=== PATIENT | female | born 1960 | race Caucasian/White ===

== ENCOUNTER 2020-06-29 01:20 | Emergency (ER) | payer BC, OTHER ==
[2020-06-29] MEDS ORDERED: NA CHLORIDE 0.9% 250 ML ONE (02:10)
[2020-06-29] MEDS ORDERED: PANTOPRAZOLE 40 MG INJ ONE (02:10)
[2020-06-29] MEDS ORDERED: OCTREOTIDE ACETATE 100 MCG/ML ONE (02:11)
[2020-06-29] MEDS ORDERED: NA CHLORIDE 0.9% 500 ML ONE (02:11)
[2020-06-29] MEDS ORDERED: NA CHLORIDE 0.9% 1,000 ML ONE (02:29)
[2020-06-29 02:42] LABS: Absolute Lymphocytes (CBC) 1.6 K/uL (0.7-4.9); Basophils % 0.8 % (0-1.3); Hematocrit 41.5 % (36.0-45.0); Lymphocytes % 11.8 % (15.3-44.8); MPV 8.6 fL (7.6-11.3); RBC Red Blood Cell Count 4.06 M/uL (3.86-4.86)
[2020-06-29 02:46] LABS: Protime INR 1.03
[2020-06-29] MEDS ORDERED: ONDANSETRON 4 MG/2 ML VIAL ONE (02:50)
[2020-06-29 03:01] LABS: ALT/SGPT 41 U/L (12-78); AST/SGOT 40 U/L (15-37); Albumin 4.1 g/dL (3.4-5.0); Alkaline Phosphatase 126 U/L (45-117); BUN Blood Urea Nitrogen 20 mg/dL (7-18); Bicarbonate 24 mmol/L (21-32); Bilirubin Direct 0.3 mg/dL (0-0.2); Bilirubin Total 1.3 mg/dL (0.2-1.0); Glucose Level 185 mg/dL (74-106); Magnesium 2.1 mg/dL (1.8-2.4); NT PRO-BNP 132 pg/mL (<125); Potassium 3.3 mmol/L (3.5-5.1); Protein, Total 8.8 g/dL (6.4-8.2); Sodium Level 139 mmol/L (136-145); Troponin (Emerg Dept Use Only) < 0.02 ng/mL (0.0-0.045)
--- NOTE | 2020-06-29 04:23 | ER ---
Nurse's Notes [facility] Name: Charlie Fisher Age: 60 yrs Sex: Female : 1960 Arrival Date: 06/29/2020 Time: 01:21 Bed 8 Private MD: Diagnosis: Encounter for screening for lower gastrointestinal disorder;Hematemesis;Alcohol dependence Presentation: 06/29 01:43 Chief complaint: Patient states: Reports vomiting black/brown emesis x4 yesterday with lp1 upper abdominal pain; denies diarrhea, constipation; reports nausea, inability to tolerate food or fluids for the last 24hrs. Coronavirus screen: Client denies travel out of the [place] in the last 14 days. At this time, the client does not indicate any symptoms associated with coronavirus-19. Ebola Screen: No symptoms or risks identified at this time. Initial Sepsis Screen: Does the patient meet any 2 criteria? HR > 90 bpm. Does the patient have a suspected source of infection? No. Patient's initial sepsis screen is negative. Risk Assessment: Do you want to hurt yourself or someone else? Patient reports no desire to harm self or others. Onset of symptoms was June 28, 2020. 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 - Social history:: Smoking status: Patient reports the use of cigarette tobacco products, denies chronic smoking, but will smoke occasionally, Patient uses alcohol, on a daily basis. claims drinking about a 6 pack/day. Screenin:46 Abuse screen: Denies threats or abuse. Denies injuries from another. Nutritional lp1 screening: No deficits noted. Tuberculosis screening: No symptoms or risk factors identified. Fall Risk None identified. Assessment: 01:46 General: Appears uncomfortable, Behavior is appropriate for age. Pain: Complains of lp1 pain in epigastric area and left upper quadrant Quality of pain is described as sharp, Pain began gradually. Neuro: Level of Consciousness is awake, alert, obeys commands, Oriented to person, place, time, situation. Cardiovascular: Patient's skin is warm and dry. Respiratory: Respiratory effort is even, unlabored. GI: Abdomen is non-distended, Bowel sounds present X 4 quads. Reports nausea, black stool, Patient currently denies constipation. : No signs and/or symptoms were reported regarding the genitourinary system. EENT: No signs and/or symptoms were reported regarding the EENT system. Derm: Skin is intact, Skin is dry, Skin is normal. Musculoskeletal: No deficits noted. 02:50 Reassessment: Provider notified of patient complaint of continued nausea, emesis bag lp1 noted to have about 150ml of black/brown liquid; verbal order for Zofran 4mg IV now. 04:00 Reassessment: Patient appears in no apparent distress at this time. Patient and/or lp1 family updated on plan of care and expected duration. Pain level reassessed. Patient is alert, oriented x 3, equal unlabored respirations, skin warm/dry/pink. Patient denies pain at this time. 05:19 Reassessment: Report called to HAIM Jovel for patient transfer to [facility] [place] 9 lp1 Rm 946; patient for transfer pending COVID result. 06:44 Reassessment: Patient is alert, oriented x 3, equal unlabored respirations, skin lp1 warm/dry/pink. EMS at bedside for transfer; Patient denies pain at this time. GI: Patient currently denies nausea. 06:50 Reassessment: Patient ambulated to bathroom independently prior to transfer. lp1 06:50 Neuro: Gait is steady. lp1 Vital Signs: 01:43 BP 144 / 103; Pulse 132; Resp 20; Temp 98.3(O); Pulse Ox 99% on R/A; Weight 77.11 kg lp1 (R); 02:08 BP 129 / 85; Pulse 122; Resp 13; Pulse Ox 100% on R/A; lp1 03:00 BP 140 / 94; Pulse 104; Resp 13; Pulse Ox 99% on R/A; lp1 04:00 BP 140 / 91; Pulse 91; Resp 14; Pulse Ox 99% on R/A; lp1 04:30 BP 145 / 90; Pulse 92; Resp 14; Pulse Ox 99% on R/A; lp1 05:15 BP 159 / 92; Pulse 97; Resp 14; Pulse Ox 100% on R/A; lp1 06:30 BP 148 / 87; Pulse 100; Resp 20; Pulse Ox 100% on R/A; Pain 0/10; lp1 ED Course: 01:21 Patient arrived in ED. am2 01:40 Ailyn Grace, RN is Primary Nurse. lp1 01:41 Reymundo Slaughter MD is Attending Physician. tw4 01:45 Triage completed. lp1 01:45 Arm band placed on. lp1 01:46 Patient has correct armband on for positive identification. Placed in gown. Bed in low lp1 position. Call light in reach. environmental health and safety intern on. Pulse ox on. NIBP on. 02:08 XRAY Chest (1 view) In Process Unspecified. EDMS 02:25 Initial lab(s) drawn, by me, sent to lab. Inserted saline lock: 22 gauge in right lp1 antecubital area, using aseptic technique. Blood collected. 02:54 Inserted saline lock: 22 gauge in left antecubital area, using aseptic technique. lp1 03:51 Initiated transfer at [facility] with Rosa. tt3 04:16 Rosa called back with their physician to speak with Dr. Slaughter regarding the tt3 transfer request. 04:28 Rosa called back with Dr. Fletcher to speak with Dr. Slaughter regarding the transfer tt3 request. 04:41 Rosa Velez gave admin approval. Dr. Fletcher is the accepting physician. The pt is tt3 going to 9 [place] bed 946. Face sheet and MOT faxed to per Rosa's request. Nurse to call report to [phone]. 06:41 No provider procedures requiring assistance completed. lp1 06:57 Patient transferred, IV remains in place. lp1 Administered Medications: 02:33 Drug: ProTONIX 8 mg/hr Route: IV; Rate: 25 ml/hr; Site: right antecubital; lp1 06:54 Follow up: IV Status: Infusion continued upon transfer lp1 02:33 Drug: Octreotide 25 mcg Route: IV; Rate: bolus; Site: right antecubital; lp1 03:00 Follow up: Response: No adverse reaction; IV Status: Completed infusion lp1 02:33 Drug: NS 0.9% 1000 ml Route: IV; Rate: 1000 ml; Site: right antecubital; lp1 03:45 Follow up: IV Status: Completed infusion; IV Intake: 1000ml lp1 02:54 Drug: Octreotide Infusion (50 mcg/hr) - (Octreotide 500 mcg, NS 0.9% 500 ml) Route: IV; lp1 Rate: 50 ml/hr; Site: left antecubital; 06:54 Follow up: IV Status: Infusion continued upon transfer lp1 02:54 Drug: Zofran (Ondansetron) 4 mg Route: IVP; Site: left antecubital; lp1 03:15 Follow up: Response: Marked relief of symptoms; Nausea is decreased lp1 Intake: 03:45 IV: 1000ml; Total: 1000ml. lp1 Outcome: 04:22 ER care complete, transfer ordered by . tw4 06:42 Condition: stable lp1 06:42 Instructed on the need for transfer. 06:59 Transferred by ground EMS to [facility], Transfer form completed. lp1 X-rays sent w/ patient. 06:59 Patient left the ED. lp1 Signatures: Dispatcher [employer] EDMS Ailyn Grace RN RN lp1 Wendi Duckworth am2 Reymundo Slaughter MD MD tw4 Víctor Ceja tt3 Corrections: (The following items were deleted from the chart) 05:19 05:19 Reassessment: Report called to HAIM Jovel for patient transfer to [facility] lp1 lp1 05:30 05:19 Reassessment: Report called to HAIM Jovel for patient transfer to [facility]; lp1 patient for transfer pending COVID result lp1
--- NOTE | 2020-06-29 04:23 | EDPHYS ---
Physician Documentation [facility] Name: Charlie Fisher Age: 60 yrs Sex: Female : 1960 Arrival Date: 06/29/2020 Time: 01:21 Bed 8 Private MD: ED Physician Reymundo Slaughter HPI: 06/29 02:42 This 60 yrs old Female presents to ER via Ambulatory with complaints of tw4 Vomiting - black brown, Black/Tarry Stools. 02:42 The patient presents to the emergency department with nausea, vomiting. Onset: The tw4 symptoms/episode began/occurred today. Possible causes: unknown. The symptoms are aggravated by nothing. The symptoms are alleviated by nothing. Associated signs and symptoms: The patient has no apparent associated signs or symptoms. The patient has not experienced similar symptoms in the past. 02:42 The patient presents to the emergency department with nausea, that is moderate, tw4 vomiting, 10 times since the onset of symptoms, described as coffee ground in nature, dark brown. 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 - Social history:: Smoking status: Patient reports the use of cigarette tobacco products, denies chronic smoking, but will smoke occasionally, Patient uses alcohol, on a daily basis. claims drinking about a 6 pack/day. ROS: 02:42 Constitutional: Negative for fever, chills, and weight loss, Cardiovascular: Negative tw4 for chest pain, palpitations, and edema, Respiratory: Negative for shortness of breath, cough, wheezing, and pleuritic chest pain, Back: Negative for injury and pain, MS/Extremity: Negative for injury and deformity, Skin: Negative for injury, rash, and discoloration, Neuro: Negative for headache, weakness, numbness, tingling, and seizure. 02:42 Abdomen/GI: Positive for nausea and vomiting, nausea, diarrhea, black/tarry stool. Exam: 03:08 Constitutional: This is a well developed, well nourished patient who is awake, alert, tw4 and in no acute distress. Head/Face: Normocephalic, atraumatic. Chest/axilla: Normal chest wall appearance and motion. Nontender with no deformity. No lesions are appreciated. Cardiovascular: Regular rate and rhythm with a normal S1 and S2. No gallops, murmurs, or rubs. Normal PMI, no JVD. No pulse deficits. Respiratory: Lungs have equal breath sounds bilaterally, clear to auscultation and percussion. No rales, rhonchi or wheezes noted. No increased work of breathing, no retractions or nasal flaring. Abdomen/GI: Soft, non-tender, with normal bowel sounds. No distension or tympany. No guarding or rebound. No evidence of tenderness throughout. Back: No spinal tenderness. No costovertebral tenderness. Full range of motion. MS/ Extremity: Pulses equal, no cyanosis. Neurovascular intact. Full, normal range of motion. Neuro: Awake and alert, GCS 15, oriented to person, place, time, and situation. Cranial nerves II-XII grossly intact. Motor strength 5/5 in all extremities. Sensory grossly intact. Cerebellar exam normal. Normal gait. Vital Signs: 01:43 BP 144 / 103; Pulse 132; Resp 20; Temp 98.3(O); Pulse Ox 99% on R/A; Weight 77.11 kg lp1 (R); 02:08 BP 129 / 85; Pulse 122; Resp 13; Pulse Ox 100% on R/A; lp1 03:00 BP 140 / 94; Pulse 104; Resp 13; Pulse Ox 99% on R/A; lp1 04:00 BP 140 / 91; Pulse 91; Resp 14; Pulse Ox 99% on R/A; lp1 04:30 BP 145 / 90; Pulse 92; Resp 14; Pulse Ox 99% on R/A; lp1 05:15 BP 159 / 92; Pulse 97; Resp 14; Pulse Ox 100% on R/A; lp1 06:30 BP 148 / 87; Pulse 100; Resp 20; Pulse Ox 100% on R/A; Pain 0/10; lp1 MDM: 01:42 Patient medically screened. tw4 04:34 Differential diagnosis: Nonspecific abd pain, gastritis, cholecystitis. Data reviewed: tw4 vital signs, nurses notes. Data interpreted: Pulse oximetry: Interpretation: normal. Counseling: I had a detailed discussion with the patient and/or guardian regarding: the historical points, exam findings, and any diagnostic results supporting the discharge/admit diagnosis. 06/29 01:50 Order name: Basic Metabolic Panel; Complete Time: 03:23 06/29 03:51 Interpretation: Normal except: K 3.3; GLUC 185; BUN 20; GFR 62. 06/29 01:50 Order name: CBC with Diff; Complete Time: 03:23 06/29 03:51 Interpretation: Normal except: WBC 13.8; MCV 102.1; LYM% 11.8; JAMIE% 75.9; NEUT A 10.5. 06/29 01:50 Order name: LFT's; Complete Time: 03:23 06/29 03:52 Interpretation: Normal except: AST 40; ALK 126; BILIT 1.3; BILID 0.3; TP 8.8; A/G 0.9; tw4 GLOB 4.7. 06/29 01:50 Order name: Magnesium; Complete Time: 03:23 06/29 03:54 Interpretation: Within normal limits: MG 2.1. 06/29 01:50 Order name: NT PRO-BNP; Complete Time: 03:23 06/29 03:52 Interpretation: Normal except: NT PRO-BNP 132. 06/29 01:50 Order name: PT-INR; Complete Time: 03:23 06/29 01:50 Order name: Troponin (emerg Dept Use Only); Complete Time: 03:23 06/29 01:50 Order name: XRAY Chest (1 view) 06/29 06:15 Order name: SARS-COV-2 RT PCR EDMS 06/29 01:50 Order name: EKG; Complete Time: 01:51 06/29 01:50 Order name: Cardiac monitoring; Complete Time: 02:08 06/29 01:50 Order name: EKG - Nurse/Tech; Complete Time: 03:10 06/29 01:50 Order name: IV Saline Lock; Complete Time: 02:34 06/29 01:50 Order name: Labs collected and sent; Complete Time: 02:34 06/29 01:50 Order name: O2 Per Protocol; Complete Time: 02:08 06/29 01:50 Order name: O2 Sat Monitoring; Complete Time: 02:08 tw4 EC:08 Rate is 97 beats/min. Rhythm is regular. QRS [place] is Normal. VA interval is normal. QRS tw4 interval is normal. QT interval is normal. No Q waves. T waves are Normal. No ST changes noted. Clinical impression: Normal ECG. Interpreted by me. Reviewed by me. Administered Medications: 02:33 Drug: ProTONIX 8 mg/hr Route: IV; Rate: 25 ml/hr; Site: right antecubital; lp1 06:54 Follow up: IV Status: Infusion continued upon transfer lp1 02:33 Drug: Octreotide 25 mcg Route: IV; Rate: bolus; Site: right antecubital; lp1 03:00 Follow up: Response: No adverse reaction; IV Status: Completed infusion lp1 02:33 Drug: NS 0.9% 1000 ml Route: IV; Rate: 1000 ml; Site: right antecubital; lp1 03:45 Follow up: IV Status: Completed infusion; IV Intake: 1000ml lp1 02:54 Drug: Octreotide Infusion (50 mcg/hr) - (Octreotide 500 mcg, NS 0.9% 500 ml) Route: IV; lp1 Rate: 50 ml/hr; Site: left antecubital; 06:54 Follow up: IV Status: Infusion continued upon transfer lp1 02:54 Drug: Zofran (Ondansetron) 4 mg Route: IVP; Site: left antecubital; lp1 03:15 Follow up: Response: Marked relief of symptoms; Nausea is decreased lp1 Disposition: 06/29/20 04:22 Transfer ordered to [facility]. Diagnosis are Encounter for screening for lower gastrointestinal disorder, Hematemesis, Alcohol dependence. - Reason for transfer: Higher level of care. - Accepting physician is Dr Sweet. - Condition is Stable. - Problem is new. - Symptoms are unchanged. Signatures: Dispatcher [employer] Ailyn Alvarez RN RN lp1 Reymundo Slaughter MD MD tw4 Corrections: (The following items were deleted from the chart) 04:36 04:22 06/29/2020 04:22 Transfer ordered to [facility]. tw4 Diagnosis is Encounter for screening for lower gastrointestinal disorder; Hematemesis; Alcohol dependence. Reason for transfer: Higher level of care. Accepting physician is Dr Pyle. Condition is Stable. Problem is new. Symptoms are unchanged. tw4 05:14 04:48 CORONAVIRUS+ ordered. EDWY EDMS 06:59 04:36 06/29/2020 04:22 Transfer ordered to [facility]. lp1 Diagnosis is Encounter for screening for lower gastrointestinal disorder; Hematemesis; Alcohol dependence. Reason for transfer: Higher level of care. Accepting physician is Dr Sweet. Condition is Stable. Problem is new. Symptoms are unchanged. tw4
--- NOTE | 2020-06-29 09:28 | RAD REPORT ---
EXAM DESCRIPTION: Myranda Single View06/29/2020 2:08 am CLINICAL HISTORY: Abdominal pain/GI bleed COMPARISON: none FINDINGS: The lungs appear clear of acute infiltrate. The heart is normal size IMPRESSION: No acute abnormalities displayed
[2020-07-03 13:53] VITALS: O2SAT 100
[2020-07-03 13:54] VITALS: BP 148/87
== END 2020-06-29 06:59 | disposition short-term general hospital (02) ==
LOC: ER 01:20
DX: Z13.811 Encounter for screening for lower gastrointestinal disorder (principal); F10.20 Alcohol dependence, uncomplicated; Z20.828 Contact with and (suspected) exposure to other viral communicable diseases; Z72.0 Tobacco use
CPT/HCPCS: 93005; 85025; 80048; 36415; 83735; 85610; 80076; 84484; 83880; 71045; 99285; U0003; J2354; C9113; J7050; J7040; J7030; J2405

== ENCOUNTER 2021-06-09 09:43 | Emergency (ER) | payer BC ==
--- OUTSIDE RECORDS SUMMARY | 2021-06-09 09:47 | XMS REPORT | Continuity of Care Document ---
:1960 Author Organization [facility] t Address [address] [place] [address] [address] [place] [address] Care Team Providers Name Role Phone Cinthia EMERSON Attending Clinician Unavailable Cinthia EMERSON Admitting Clinician Unavailable PITO Admitting Clinician Unavailable Payers Payer Name Policy Type Policy Number Effective Date Expiration Date S ource [place] [id number] 2018 OS 00:00:00 Problems This patient has no known problems. Allergies, Adverse Reactions, Alerts Allergy Allergy Status Severity Reaction(s) Onset Inactive Treating Comm ents Source Name Type Date Date Clinician NO KNOWN Allergy Active [facility] Medications This patient has no known medications. Vital Signs Vital Name Observation Time Observation Value Comments Source HEIGHT 2020-06-30 08:12:00 170.9 cm WEIGHT 2020-06-30 08:12:00 68.04 kg HEIGHT 2020-06-30 08:12:00 170.9 cm WEIGHT 2020-06-30 08:12:00 68.04 kg Procedures This patient has no known procedures. Encounters Start End Encounter Admission Attending Care Care Encounter Source Date/Time Date/Time Type Type Clinicians Facility Department ID 2021-04-25 Inpatient ER BETTY EMERSON [facility] Med [id number] [facility] 19:37:33 SETH Results Test Description Test Time Test Comments Results Result Comments Source MISCELLANEOUS LAB ORDER 2020-07-08 08:06:00 Test Item Value Reference Range Interpretation Comme nts SCAN RESULT (test code = 3328773) ANTI-MITOCHONDRIAL AB, REFLEX TO [id number] 11:31:00 Test Item Value Reference Range Interpretation Comments SCAN RESULT (test code = 1481675) BASIC METABOLIC [id number] 05:56:00 Test Item Value Reference Range Interpretation Comments SODIUM (BEAKER) 140 meq/L 136-145 (test code = 381) POTASSIUM (BEAKER) 3.6 meq/L 3.5-5.1 (test code = 379) CHLORIDE (BEAKER) 105 meq/L 98-107 (test code = 382) CO2 (BEAKER) (test 23 meq/L 22-29 code = 355) BLOOD UREA NITROGEN 9 mg/dL 7-21 (BEAKER) (test code = 354) CREATININE (BEAKER) 0.79 mg/dL 0.57-1.25 (test code = 358) GLUCOSE RANDOM 136 mg/dL 70-105 H (BEAKER) (test code = 652) CALCIUM (BEAKER) 9.0 mg/dL 8.4-10.2 (test code = 697) EGFR (BEAKER) (test 74 mL/min/1.73 ESTIMA BROOKE GFR IS code = 1092) sq m NOT ACCURATE CREATININE CLEARANCE IN PREDICTING GLOMERULAR FILTRATION RATE . ESTIMATED GFR I S NOT APPLICABLE FOR DIALYSIS PATIEN TS. Forming Acid Dumper ID - STEPHAN MCBC W/PLT COUNT & AUTO [id number] 05:28:00 Test Item Value Reference Range Interpretation Comments WHITE BLOOD CELL COUNT (BEAKER) 7.6 K/ L 3.5-10.5 (test code = 775) RED BLOOD CELL COUNT (BEAKER) 2.94 M/ L 3.93-5.22 L (test code = 761) HEMOGLOBIN (BEAKER) (test code = 9.9 GM/DL 11.2-15.7 L 410) HEMATOCRIT (BEAKER) (test code = 31.1 % 34.1-44.9 L 411) MEAN CORPUSCULAR VOLUME (BEAKER) 105.8 fL 79.4-94.8 H (test code = 753) MEAN CORPUSCULAR HEMOGLOBIN 33.7 pg 25.6-32.2 H (BEAKER) (test code = 751) MEAN CORPUSCULAR HEMOGLOBIN CONC 31.8 GM/DL 32.2-35.5 L (BEAKER) (test code = 752) RED CELL DISTRIBUTION WIDTH 13.6 % 11.7-14.4 (BEAKER) (test code = 412) PLATELET COUNT (BEAKER) (test 236 K/CU MM 150-450 code = 756) MEAN PLATELET VOLUME (BEAKER) 10.1 fL 9.4-12.3 (test code = 754) NUCLEATED RED BLOOD CELLS 0 /100 WBC 0-0 (BEAKER) (test code = 413) NEUTROPHILS RELATIVE PERCENT 68 % (BEAKER) (test code = 429) LYMPHOCYTES RELATIVE PERCENT 20 % (BEAKER) (test code = 430) MONOCYTES RELATIVE PERCENT 10 % (BEAKER) (test code = 431) EOSINOPHILS RELATIVE PERCENT 1 % (BEAKER) (test code = 432) BASOPHILS RELATIVE PERCENT 1 % (BEAKER) (test code = 437) NEUTROPHILS ABSOLUTE COUNT 5.16 K/ L 1.56-6.13 (BEAKER) (test code = 670) LYMPHOCYTES ABSOLUTE COUNT 1.51 K/ L 1.18-3.74 (BEAKER) (test code = 414) MONOCYTES ABSOLUTE COUNT (BEAKER) 0.77 K/ L 0.24-0.36 H (test code = 415) EOSINOPHILS ABSOLUTE COUNT 0.11 K/ L 0.04-0.36 (BEAKER) (test code = 416) BASOPHILS ABSOLUTE COUNT (BEAKER) 0.04 K/ L 0.01-0.08 (test code = 417) IMMATURE GRANULOCYTES-RELATIVE 0 % 0-1 PERCENT (BEAKER) (test code = 2801) ANTI-NUCLEAR ANTIBODY (TRAVON)2020-07-01 10:14:00 Test Item Value Reference Range Interpretation Comments ANTI-NUCLEAR ANTIBODY (TRAVON) (BEAKER) Negative Negative (test code = 418) Test performed by IFA method.Test performed by IFA method.CBC W/PLT COUNT & AUTO [id number] 04:01:00 Test Item Value Reference Range Interpretation Comments WHITE BLOOD CELL COUNT (BEAKER) 10.8 K/ L 3.5-10.5 H (test code = 775) RED BLOOD CELL COUNT (BEAKER) 3.05 M/ L 3.93-5.22 L (test code = 761) HEMOGLOBIN (BEAKER) (test code = 10.5 GM/DL 11.2-15.7 L 410) HEMATOCRIT (BEAKER) (test code = 32.4 % 34.1-44.9 L 411) MEAN CORPUSCULAR VOLUME (BEAKER) 106.2 fL 79.4-94.8 H (test code = 753) MEAN CORPUSCULAR HEMOGLOBIN 34.4 pg 25.6-32.2 H (BEAKER) (test code = 751) MEAN CORPUSCULAR HEMOGLOBIN CONC 32.4 GM/DL 32.2-35.5 (BEAKER) (test code = 752) RED CELL DISTRIBUTION WIDTH 13.2 % 11.7-14.4 (BEAKER) (test code = 412) PLATELET COUNT (BEAKER) (test 292 K/CU MM 150-450 code = 756) MEAN PLATELET VOLUME (BEAKER) 9.9 fL 9.4-12.3 (test code = 754) NUCLEATED RED BLOOD CELLS 0 /100 WBC 0-0 (BEAKER) (test code = 413) NEUTROPHILS RELATIVE PERCENT 69 % (BEAKER) (test code = 429) LYMPHOCYTES RELATIVE PERCENT 18 % (BEAKER) (test code = 430) MONOCYTES RELATIVE PERCENT 12 % (BEAKER) (test code = 431) EOSINOPHILS RELATIVE PERCENT 0 % (BEAKER) (test code = 432) BASOPHILS RELATIVE PERCENT 0 % (BEAKER) (test code = 437) NEUTROPHILS ABSOLUTE COUNT 7.41 K/ L 1.56-6.13 H (BEAKER) (test code = 670) LYMPHOCYTES ABSOLUTE COUNT 1.95 K/ L 1.18-3.74 (BEAKER) (test code = 414) MONOCYTES ABSOLUTE COUNT (BEAKER) 1.28 K/ L 0.24-0.36 H (test code = 415) EOSINOPHILS ABSOLUTE COUNT 0.02 K/ L 0.04-0.36 L (BEAKER) (test code = 416) BASOPHILS ABSOLUTE COUNT (BEAKER) 0.04 K/ L 0.01-0.08 (test code = 417) IMMATURE GRANULOCYTES-RELATIVE 1 % 0-1 PERCENT (BEAKER) (test code = 2801) HEPATITIS B SURFACE [id number] 06:44:00 Test Item Value Reference Range Interpretation Comments HEPATITIS B SURFACE ANTIGEN (2) Nonreactive Nonreactive (BEAKER) (test code = 2585) Specimen is considered negative for HBsAg.COMPREHENSIVE METABOLIC PANEL 2020-06-30 06:29:00 Test Item Value Reference Range Interpretation Comments TOTAL PROTEIN 6.7 gm/dL 6.0-8.3 (BEAKER) (test code = 770) ALBUMIN (BEAKER) 3.8 g/dL 3.5-5.0 (test code = 1145) ALKALINE PHOSPHATASE 80 U/L 40-150 (BEAKER) (test code = 346) BILIRUBIN TOTAL 0.9 mg/dL 0.2-1.2 (BEAKER) (test code = 377) SODIUM (BEAKER) (test 139 meq/L 136-145 code = 381) POTASSIUM (BEAKER) 3.4 meq/L 3.5-5.1 L (test code = 379) CHLORIDE (BEAKER) 105 meq/L 98-107 (test code = 382) CO2 (BEAKER) (test 22 meq/L 22-29 code = 355) BLOOD UREA NITROGEN 10 mg/dL 7-21 (BEAKER) (test code = 354) CREATININE (BEAKER) 0.78 mg/dL 0.57-1.25 (test code = 358) GLUCOSE RANDOM 153 mg/dL 70-105 H (BEAKER) (test code = 652) CALCIUM (BEAKER) 8.8 mg/dL 8.4-10.2 (test code = 697) AST (SGOT) (BEAKER) 34 U/L 5-34 (test code = 353) ALT (SGPT) (BEAKER) 23 U/L 6-55 (test code = 347) EGFR (BEAKER) (test 75 mL/min/1.73 ESTIMA BROOKE GFR IS code = 1092) sq m NOT ACCURATE CREATININE CLEARANCE IN PREDICTING GLOMERULAR FILTRATION RATE . ESTIMATED GFR I S NOT APPLICABLE FOR DIALYSIS PATIEN TS. Forming Acid Dumper ID - ADMINCBC W/PLT COUNT & AUTO [id number] 05:40:00 Test Item Value Reference Range Interpretation Comments WHITE BLOOD CELL COUNT (BEAKER) 8.2 K/ L 3.5-10.5 (test code = 775) RED BLOOD CELL COUNT (BEAKER) 3.09 M/ L 3.93-5.22 L (test code = 761) HEMOGLOBIN (BEAKER) (test code = 10.7 GM/DL 11.2-15.7 L 410) HEMATOCRIT (BEAKER) (test code = 31.7 % 34.1-44.9 L 411) MEAN CORPUSCULAR VOLUME (BEAKER) 102.6 fL 79.4-94.8 H (test code = 753) MEAN CORPUSCULAR HEMOGLOBIN 34.6 pg 25.6-32.2 H (BEAKER) (test code = 751) MEAN CORPUSCULAR HEMOGLOBIN CONC 33.8 GM/DL 32.2-35.5 (BEAKER) (test code = 752) RED CELL DISTRIBUTION WIDTH 13.5 % 11.7-14.4 (BEAKER) (test code = 412) PLATELET COUNT (BEAKER) (test 247 K/CU MM 150-450 code = 756) MEAN PLATELET VOLUME (BEAKER) 9.8 fL 9.4-12.3 (test code = 754) NUCLEATED RED BLOOD CELLS 0 /100 WBC 0-0 (BEAKER) (test code = 413) NEUTROPHILS RELATIVE PERCENT 64 % (BEAKER) (test code = 429) LYMPHOCYTES RELATIVE PERCENT 21 % (BEAKER) (test code = 430) MONOCYTES RELATIVE PERCENT 12 % (BEAKER) (test code = 431) EOSINOPHILS RELATIVE PERCENT 2 % (BEAKER) (test code = 432) BASOPHILS RELATIVE PERCENT 1 % (BEAKER) (test code = 437) NEUTROPHILS ABSOLUTE COUNT 5.24 K/ L 1.56-6.13 (BEAKER) (test code = 670) LYMPHOCYTES ABSOLUTE COUNT 1.72 K/ L 1.18-3.74 (BEAKER) (test code = 414) MONOCYTES ABSOLUTE COUNT (BEAKER) 0.96 K/ L 0.24-0.36 H (test code = 415) EOSINOPHILS ABSOLUTE COUNT 0.15 K/ L 0.04-0.36 (BEAKER) (test code = 416) BASOPHILS ABSOLUTE COUNT (BEAKER) 0.05 K/ L 0.01-0.08 (test code = 417) IMMATURE GRANULOCYTES-RELATIVE 0 % 0-1 PERCENT (BEAKER) (test code = 2801) HEPATITIS B CORE ANTIBODY, [id number] 17:52:00 Test Item Value Reference Range Interpretation Comments HEPATITIS B CORE TOTAL ANTIBODY Nonreactive Nonreactive (BEAKER) (test code = 497) Forming Acid Dumper ID - DBHEPATITIS PANEL, [id number] 17:52:00 Test Item Value Reference Range Interpretation Comments HEPATITIS A IGM ANTIBODY (BEAKER) Nonreactive Nonreactive (test code = 498) HEPATITIS B CORE IGM ANTIBODY Nonreactive Nonreactive (BEAKER) (test code = 645) HEPATITIS C ANTIBODY (BEAKER) Nonreactive Nonreactive (test code = 367) HEPATITIS B SURFACE ANTIGEN (2) Nonreactive Nonreactive (BEAKER) (test code = 2585) Forming Acid Dumper ID - DBHEPATITIS A ANTIBODY, [id number] 17:52:00 Test Item Value Reference Range Interpretation Comments HEPATITIS A IGG ANTIBODY (BEAKER) Nonreactive Nonreactive (test code = 2797) Forming Acid Dumper ID - DBHEPATITIS B SURFACE [id number] 17:52:00 Test Item Value Reference Range Interpretation Comments HEPATITIS B SURFACE ANTIBODY < mIU/mL <8.0 (BEAKER) (test code = 647) Forming Acid Dumper ID - DBHEPATIC FUNCTION [id number] 17:29:00 Test Item Value Reference Range Interpretation Comments TOTAL PROTEIN (BEAKER) (test code = 7.5 gm/dL 6.0-8.3 770) ALBUMIN (BEAKER) (test code = 1145) 4.1 g/dL 3.5-5.0 BILIRUBIN TOTAL (BEAKER) (test code 1.0 mg/dL 0.2-1.2 = 377) BILIRUBIN DIRECT (BEAKER) (test 0.4 mg/dL 0.1-0.5 code = 706) ALKALINE PHOSPHATASE (BEAKER) (test 99 U/L 40-150 code = 346) AST (SGOT) (BEAKER) (test code = 27 U/L 5-34 353) ALT (SGPT) (BEAKER) (test code = 24 U/L 6-55 347) Forming Acid Dumper ID - [id number] 17:28:00 Test Item Value Reference Range Interpretation Comments ALPHA-1 ANTITRYPSIN (BEAKER) 135.70 mg/dL 90.00-200.00 (test code = 502) Forming Acid Dumper ID - DBHEMOGLOBIN AND [id number] 17:11:00 Test Item Value Reference Range Interpretation Comments HEMOGLOBIN (BEAKER) (test code = 11.4 GM/DL 11.2-15.7 410) HEMATOCRIT (BEAKER) (test code = 34.8 % 34.1-44.9 411) Forming Acid Dumper ID - 6000U/S, ABDOMINAL, [id number] 11:24:00evalute for liver disease, masses, cirrhosis, splenomegaly, ascitesReason for exam:->evalute for liver disease, masses, cirrhosis, splenomegaly, ascites [facility] 1960 Sex: FFINAL REPORT HISTORY:evalute for liver disease, masses, cirrhosis, spl enomegaly, ascites COMPARISON:None. TECHNIQUE:Ultrasound examination of the abdomen was performed with spectral and color Doppler imaging. FINDINGS: Liver: The liver is normal in size with increased echogenicity. No focal lesions. The main portal vein measures 0.7 cm.Biliary: No stones. No sludge, pericholecystic fluid or wall thickening. Negative sonographic De La Cruz's sign. Common bile duct measures0.4 cm. No intrahepatic biliary ductal dilatation.Spleen: No splenomegaly.Pancreas: Visualized portions are unremarkable. Kidneys: The kidneys are normal in size without hydronephrosis nor sonographically evident solid mass lesion.Midline Vessels: Visualized portions of the IVC and aorta are unremarkable.Peritoneum: No free fluid. IMPRESSION: Echogenic liver, may represent steatosis/inflammation. Correlate with laboratory values. Signed: Francisco Rivers MDReport Verified Date/Time: 06/29/2020 11:24:33 Reading Location: [address] Consult Reading Room [id number] 11:15:00 Test Item Value Reference Range Interpretation Comments FERRITIN (BEAKER) (test code = 316.29 ng/mL 5.00-275.00 H 361) Forming Acid Dumper ID - EDASIB-TYPE NATRIURETIC FACTOR (BNP)2020-06-29 10:56:00 Test Item Value Reference Range Interpretation Comments B-TYPE NATRIURETIC PEPTIDE (BEAKER) 25 pg/mL 0-100 (test code = 700) Forming Acid Dumper ID - DBCOMPREHENSIVE METABOLIC [id number] 10:55:00 Test Item Value Reference Range Interpretation Comments TOTAL PROTEIN 7.2 gm/dL 6.0-8.3 (BEAKER) (test code = 770) ALBUMIN (BEAKER) 4.0 g/dL 3.5-5.0 (test code = 1145) ALKALINE PHOSPHATASE 96 U/L 40-150 (BEAKER) (test code = 346) BILIRUBIN TOTAL 1.2 mg/dL 0.2-1.2 (BEAKER) (test code = 377) SODIUM (BEAKER) (test 140 meq/L 136-145 code = 381) POTASSIUM (BEAKER) 3.9 meq/L 3.5-5.1 (test code = 379) CHLORIDE (BEAKER) 104 meq/L 98-107 (test code = 382) CO2 (BEAKER) (test 22 meq/L 22-29 code = 355) BLOOD UREA NITROGEN 15 mg/dL 7-21 (BEAKER) (test code = 354) CREATININE (BEAKER) 0.86 mg/dL 0.57-1.25 (test code = 358) GLUCOSE RANDOM 172 mg/dL 70-105 H (BEAKER) (test code = 652) CALCIUM (BEAKER) 9.0 mg/dL 8.4-10.2 (test code = 697) AST (SGOT) (BEAKER) 26 U/L 5-34 (test code = 353) ALT (SGPT) (BEAKER) 27 U/L 6-55 (test code = 347) EGFR (BEAKER) (test 67 mL/min/1.73 ESTIMA BROOKE GFR IS code = 1092) sq m NOT ACCURATE CREATININE CLEARANCE IN PREDICTING GLOMERULAR FILTRATION RATE . ESTIMATED GFR I S NOT APPLICABLE FOR DIALYSIS PATIEN TS. Forming Acid Dumper ID - [id number] 10:55:00 Test Item Value Reference Range Interpretation Comments MAGNESIUM (BEAKER) (test code = 1.8 mg/dL 1.6-2.6 627) Forming Acid Dumper ID - [id number] 10:55:00 Test Item Value Reference Range Interpretation Comments PHOSPHORUS (BEAKER) (test code = 3.4 mg/dL 2.3-4.7 604) Forming Acid Dumper ID - EDASIIRON, TIBC, % SAT. (WITHOUT FERRITIN)2020-06-29 10:55:00 Test Item Value Reference Range Interpretation Comments IRON (BEAKER) (test code = 547) 90.0 ug/dL 40.0-160.0 TOTAL IRON BINDING CAPACITY 279 ug/dL 250-450 (BEAKER) (test code = 769) IRON % SATURATION (2) (BEAKER) 32 % 20-55 (test code = 2590) Forming Acid Dumper ID - EDASIPROTHROMBIN TIME/[id number] 10:20:00 Test Item Value Reference Range Interpretation Comments PROTIME (BEAKER) (test code = 13.1 seconds 11.9-14.2 759) INR (BEAKER) (test code = 370) 1.03 <=5.90 Effective 12/14/2018: PT Reference Range ChangeNew: 11.9-14.2 Previous: 11.7- 14.7RECOMMENDED COUMADIN/WARFARIN INR THERAPY RANGESSTANDARD DOSE: 2.0-3.0 Includes: PROPHYLAXIS for venous thrombosis, systemic embolization; TREATMENT for venous thrombosis and/or pulmonary embolus.HIGH RISK: Target INR is2.5-3.5 for patients wiht mechanical heart valves.CBC W/PLT COUNT & AUTO [id number] 10:12:00 Test Item Value Reference Range Interpretation Comments WHITE BLOOD CELL COUNT (BEAKER) 9.0 K/ L 3.5-10.5 (test code = 775) RED BLOOD CELL COUNT (BEAKER) 3.44 M/ L 3.93-5.22 L (test code = 761) HEMOGLOBIN (BEAKER) (test code = 11.5 GM/DL 11.2-15.7 410) HEMATOCRIT (BEAKER) (test code = 35.0 % 34.1-44.9 411) MEAN CORPUSCULAR VOLUME (BEAKER) 101.7 fL 79.4-94.8 H (test code = 753) MEAN CORPUSCULAR HEMOGLOBIN 33.4 pg 25.6-32.2 H (BEAKER) (test code = 751) MEAN CORPUSCULAR HEMOGLOBIN CONC 32.9 GM/DL 32.2-35.5 (BEAKER) (test code = 752) RED CELL DISTRIBUTION WIDTH 13.6 % 11.7-14.4 (BEAKER) (test code = 412) PLATELET COUNT (BEAKER) (test 252 K/CU MM 150-450 code = 756) MEAN PLATELET VOLUME (BEAKER) 10.0 fL 9.4-12.3 (test code = 754) NUCLEATED RED BLOOD CELLS 0 /100 WBC 0-0 (BEAKER) (test code = 413) NEUTROPHILS RELATIVE PERCENT 67 % (BEAKER) (test code = 429) LYMPHOCYTES RELATIVE PERCENT 17 % (BEAKER) (test code = 430) MONOCYTES RELATIVE PERCENT 15 % (BEAKER) (test code = 431) EOSINOPHILS RELATIVE PERCENT 1 % (BEAKER) (test code = 432) BASOPHILS RELATIVE PERCENT 0 % (BEAKER) (test code = 437) NEUTROPHILS ABSOLUTE COUNT 6.04 K/ L 1.56-6.13 (BEAKER) (test code = 670) LYMPHOCYTES ABSOLUTE COUNT 1.53 K/ L 1.18-3.74 (BEAKER) (test code = 414) MONOCYTES ABSOLUTE COUNT (BEAKER) 1.30 K/ L 0.24-0.36 H (test code = 415) EOSINOPHILS ABSOLUTE COUNT 0.05 K/ L 0.04-0.36 (BEAKER) (test code = 416) BASOPHILS ABSOLUTE COUNT (BEAKER) 0.04 K/ L 0.01-0.08 (test code = 417) IMMATURE GRANULOCYTES-RELATIVE 0 % 0-1 PERCENT (BEAKER) (test code = 7686)
[2021-06-09] MEDS ORDERED: ONDANSETRON 4 MG/2 ML VIAL ONE (10:37)
[2021-06-09] MEDS ORDERED: MORPHINE 4 MG/ML SYR ONE (10:37)
[2021-06-09] MEDS ORDERED: NA CHLORIDE 0.9% 1,000 ML ONE (10:37)
[2021-06-09 10:38] LABS: Hematocrit 46.8 % (36.0-45.0); RBC Red Blood Cell Count 4.66 M/uL (3.86-4.86)
[2021-06-09 10:39] LABS: Absolute Lymphocytes (CBC) 1.3 K/uL (0.7-4.9); Basophils % 0.5 % (0-1.3); Lymphocytes % 11.2 % (15.3-44.8)
[2021-06-09] MEDS ORDERED: PANTOPRAZOLE 40 MG INJ ONE (10:48)
[2021-06-09 10:55] LABS: Albumin 3.9 g/dL (3.4-5.0); Bilirubin Direct 0.4 mg/dL (0-0.2); Bilirubin Total 1.8 mg/dL (0.2-1.0); Potassium 3.2 mmol/L (3.5-5.1); Protein, Total 8.7 g/dL (6.4-8.2)
--- NOTE | 2021-06-09 11:36 | RAD REPORT ---
EXAM DESCRIPTION: CTAbdomen Pelvis W Contrast - 06/09/2021 11:20 am CLINICAL HISTORY: Abdominal pain. ABD PAIN COMPARISON: No comparisons TECHNIQUE: Biphasic CT imaging of the abdomen and pelvis was performed with 100 ml non-ionic IV cont rast. All CT scans are performed using dose optimization technique as appropriate and may include automated exposure control or mA/KV adjustment according to patient size. FINDINGS: The lung bases are clear. The liver demonstrates diffuse fatty infiltration. The spleen, pancreas, adrenal glands and kidneys a re within normal limits. No bowel obstruction, free air, free fluid or abscess. Small fat containing umbilical hernia. The joceline endix is normal. No evidence of significant lymphadenopathy. No suspicious bony findings. IMPRESSION: Prominent fatty liver.
--- NOTE | 2021-06-09 11:57 | EDPHYS ---
Physician Documentation [facility] Name: Charlie Fisher Age: 61 yrs Sex: Female : 1960 Arrival Date: 06/09/2021 Time: 09:45 Bed 13 Private MD: ED Physician Fazal Orzoco HPI: 06/09 10:09 This 61 yrs old Female presents to ER via Ambulatory with complaints of Abdominal Pain kb - ulcer. 10:09 The patient presents with abdominal pain in the left upper quadrant, in the left lower kb quadrant. Onset: The symptoms/episode began/occurred yesterday. The symptoms do not radiate. Associated signs and symptoms: Pertinent positives: nausea, vomiting, and diarrhea, blood in stools, vomiting blood. The symptoms are described as constant. Modifying factors: The symptoms are alleviated by nothing, the symptoms are aggravated by nothing. Severity of pain: At its worst the pain was moderate in the emergency department the pain is unchanged. The patient has experienced similar episodes in the past, a few times. The patient has not recently seen a physician. Pt reports n/v/d that started yesterday. States she has had blood in stool and emesis that started bright red last night and is now brown/black. States she was diagnosed with a bleeding ulcer in June 2019 at [facility]. . 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 - Social history:: Smoking status: Patient reports the use of cigarette tobacco products, denies chronic smoking, but will smoke occasionally. ROS: 10:09 Constitutional: Negative for fever, chills, and weight loss. kb 10:09 Abdomen/GI: Positive for abdominal pain, nausea, vomiting, and diarrhea, hematemesis, black/tarry stool. 10:09 All other systems are negative. Exam: 10:09 Constitutional: This is a well developed, well nourished patient who is awake, alert, kb and in no acute distress. Head/Face: Normocephalic, atraumatic. ENT: Moist Mucous membranes Cardiovascular: Regular rate and rhythm with a normal S1 and S2. No gallops, murmurs, or rubs. No pulse deficits. Respiratory: Respirations even and unlabored. No increased work of breathing, no retractions or nasal flaring. Abdomen/GI: Soft, non-tender. No distention Skin: Warm, dry with normal turgor. Normal color. MS/ Extremity: Pulses equal, no cyanosis. Neurovascular intact. Full, normal range of motion. Neuro: Awake and alert, GCS 15, oriented to person, place, time, and situation. Moves all extremities. Normal gait. Psych: Awake, alert, with orientation to person, place and time. Behavior, mood, and affect are within normal limits. 11:55 Abdomen/GI: Rectal exam: rectal tone normal, Stool: guaiac positive, hemorrhoid(s), kb external, without bleeding, without inflammation, without thrombosis, without pain. Vital Signs: 09:59 BP 173 / 99; Pulse 118; Resp 20 S; Temp 97.9(TE); Pulse Ox 98% on R/A; Weight 75.75 kg aa5 (R); Height 5 ft. 7 in. (170.18 cm) (R); 11:55 BP 151 / 83; Pulse 98; Resp 16; Temp 98.7; Pulse Ox 100% ; jh5 09:59 Body Mass Index 26.16 (75.75 kg, 170.18 cm) aa5 MDM: 10:03 Patient medically screened. kb 10:12 Data reviewed: vital signs, nurses notes. Data interpreted: Pulse oximetry: on room air kb is 98 %. Interpretation: normal. 11:55 Counseling: I had a detailed discussion with the patient and/or guardian regarding: the kb historical points, exam findings, and any diagnostic results supporting the discharge/admit diagnosis, lab results, radiology results, the need for outpatient follow up, a [facility], to return to the emergency department if symptoms worsen or persist or if there are any questions or concerns that arise at home. ED course: Pt does not want to be transferred to another facility for GI. States she has a GI that was recommended to her that she would like to follow up with in the office. Pt will return for worsening symptoms or any other concerns, but wants to go home at this time. . 06/09 10:03 Order name: Basic Metabolic Panel; Complete Time: 10:57 kb 06/09 10:03 Order name: CBC with Diff; Complete Time: 11:47 kb 06/09 10:03 Order name: Hepatic Function; Complete Time: 10:57 kb 06/09 10:03 Order name: Lipase; Complete Time: 10:57 kb 06/09 10:03 Order name: CT Abd/Pelvis - IV Contrast Only; Complete Time: 11:42 kb 06/09 10:03 Order name: IV Saline Lock; Complete Time: 10:28 kb 06/09 10:03 Order name: Labs collected and sent; Complete Time: 10:28 kb 06/09 11:44 Order name: Vital Signs; Complete Time: 11:57 kb Administered Medications: 10:41 Drug: NS 0.9% 1000 ml Route: IV; Rate: 1000 ml; Site: right forearm; jh5 10:41 Drug: Zofran (Ondansetron) 4 mg Route: IVP; Site: right forearm; jh5 10:41 Drug: morphine 4 mg Route: IVP; Site: right forearm; jh5 10:51 Drug: ProTONIX (pantoprazole) 40 mg Route: IVP; Site: right forearm; jh5 Disposition: 13:39 Co-signature as Attending Physician, Fazal Orozco MD I agree with the assessment and kdr plan of care. Disposition Summary: 06/09/21 11:56 Discharge Ordered Location: Home kb Condition: Stable kb Diagnosis - GI Bleed/ Gastrointestinal hemorrhage, unspecified kb Followup: kb - With: Emergency Department - When: As needed - Reason: Worsening of condition Followup: kb - With: Private Physician - When: 2 - 3 days - Reason: Recheck today's complaints, Continuance of care, Re-evaluation by your physician Discharge Instructions: - Discharge Summary Sheet kb - Gastrointestinal Bleeding, [id number] kb Forms: - Medication Reconciliation Form kb - Thank You Letter kb - Antibiotic Education kb - Prescription Opioid Use kb Prescriptions: - Protonix 40 mg Oral Tablet - take 1 tablet by ORAL route once daily; 30 tablet; Refills: 0, Product kb Selection Permitted - Zofran 4 mg Oral Tablet - take 1 tablet by ORAL route every 6 hours As needed; 20 tablet; Refills: 0, kb Product Selection Permitted Signatures: Dispatcher [employer] Christy Salcedo, SURGICAL RN-C SURGICAL RN-Ckb Fazal Orozco MD MD kdr Stephany Daigle, RN RN aa5 Alejandra Carreon RN RN jh5
--- NOTE | 2021-06-09 11:57 | ER ---
Nurse's Notes [facility] Name: Charlie Fisher Age: 61 yrs Sex: Female : 1960 Arrival Date: 06/09/2021 Time: 09:45 Bed 13 Private MD: Diagnosis: GI Bleed/ Gastrointestinal hemorrhage, unspecified Presentation: 06/09 09:59 Chief complaint: Patient states: left sided abd pain, nausea, vomiting, diarrhea since aa5 yesterday. Pt reports blood in vomit and stool. Pt states "I have a bleeding ulcer". Coronavirus screen: diarrhea, nausea, vomiting. Ebola Screen: No symptoms or risks identified at this time. Initial Sepsis Screen: Does the patient meet any 2 criteria? HR > 90 bpm. Does the patient have a suspected source of infection? No. Patient's initial sepsis screen is negative. Risk Assessment: Do you want to hurt yourself or someone else? Patient reports no desire to harm self or others. Onset of symptoms was May 2021. 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 - Social history:: Smoking status: Patient reports the use of cigarette tobacco products, denies chronic smoking, but will smoke occasionally. Screenin:56 Abuse screen: Denies threats or abuse. Denies injuries from another. Nutritional jh5 screening: No deficits noted. Tuberculosis screening: No symptoms or risk factors identified. Fall Risk None identified. Assessment: 11:50 General: Appears in no apparent distress. uncomfortable, Behavior is calm, cooperative, jh5 appropriate for age. Pain: Complains of pain in abdomen. Neuro: Level of Consciousness is awake, alert, obeys commands, Oriented to person, place, time, situation, Appropriate for age Speech is normal. Cardiovascular: Capillary refill < 3 seconds Patient's skin is warm and dry. Respiratory: Airway is patent Trachea midline Respiratory effort is even, unlabored, Respiratory pattern is regular, symmetrical. GI: Bowel sounds present X 4 quads. Abd is soft X 4 quads. Vital Signs: 09:59 BP 173 / 99; Pulse 118; Resp 20 S; Temp 97.9(TE); Pulse Ox 98% on R/A; Weight 75.75 kg aa5 (R); Height 5 ft. 7 in. (170.18 cm) (R); 11:55 BP 151 / 83; Pulse 98; Resp 16; Temp 98.7; Pulse Ox 100% ; jh5 09:59 Body Mass Index 26.16 (75.75 kg, 170.18 cm) [facility] ED Course: 09:45 Patient arrived in ED. as 09:59 Arm band placed on. aa5 10:00 Triage completed. aa5 10:02 Alejandra Carreon, RN is Primary Nurse. 5 10:03 Christy Jett FNP-C is PHCP. kb 10:03 Fazal Orozco MD is Attending Physician. kb 11:20 CT Abd/Pelvis - IV Contrast Only In Process Unspecified. EDMS 11:56 Patient has correct armband on for positive identification. Bed in low position. Call [facility] light in reach. Side rails up X 1. Adult w/ patient. 11:56 No provider procedures requiring assistance completed. Inserted saline lock: 20 gauge [facility] in right forearm, using aseptic technique. Administered Medications: 10:41 Drug: NS 0.9% 1000 ml Route: IV; Rate: 1000 ml; Site: right forearm; 5 10:41 Drug: Zofran (Ondansetron) 4 mg Route: IVP; Site: right forearm; 5 10:41 Drug: morphine 4 mg Route: IVP; Site: right forearm; 5 10:51 Drug: ProTONIX (pantoprazole) 40 mg Route: IVP; Site: right forearm; [facility] Outcome: 11:56 Condition: good [facility] 11:56 Discharge ordered by . kb 12:06 Patient left the ED. [facility] Signatures: Dispatcher [employer] EDHI Christy Jett FNP-C FNP-Ckb Martinez, Amelia as Calderon, Audri, RN RN [facility] Alejandra Carreon, HAIM WHITMORE [facility]
[2021-06-09 12:14] VITALS: BP 151/83; TEMP 98.7; O2SAT 100
== END 2021-06-09 12:06 | disposition home or self-care (01) ==
LOC: ER 09:43
DX: K92.2 Gastrointestinal hemorrhage, unspecified (principal); Z72.0 Tobacco use
CPT/HCPCS: 85025; 80048; 36415; 80076; 83690; 74177; 96375; 96374; 99283; Q9967; C9113; J7030; J2405

== ENCOUNTER 2023-11-27 14:20 | Emergency (ER) | payer BC ==
[2023-11-27 15:30] LABS: Absolute Lymphocytes (CBC) 0.8 K/uL (0.7-4.9); Absolute Monocytes 0.5 K/uL (0.1-1.3); Absolute Neutrophil 2.6 K/uL (1.8-8.0); Basophils % 0.5 % (0-1.3); Eosinophils % 0.2 % (0-4.4); Hematocrit 27.3 % (36.0-45.0); Hemoglobin 9.2 g/dL (12.0-15.0); Lymphocytes % 19.9 % (15.3-44.8); MCH 41.5 pg (27.0-35.0); MCHC 33.9 g/dL (32.0-36.0); MCV 122.5 fL (80-100); MPV 6.9 fL (7.6-11.3); Monocytes % 13.4 % (3.3-12.3); Nucleated Red Blood Cells % 0.2 % (0-0); Platelets 216 thou/uL (152-406); RBC Red Blood Cell Count 2.23 M/uL (3.86-4.86); Red Cell Distribution Width 16.5 % (12.1-15.2)
--- NOTE | 2023-11-27 15:39 | RAD REPORT ---
EXAM DESCRIPTION: CT - Head Brain Wo Cont - 11/27/2023 3:34 pm CLINICAL HISTORY: WEAKNESS Headache, drowsiness COMPARISON: No comparisons TECHNIQUE: All CT scans are performed using dose optimization technique as appropriate and may inclu de automated exposure control or mA/KV adjustment according to patient size. FINDINGS: No intracranial hemorrhage, hydrocephalus or extra-axial fluid collection.Mild generalized brain atrophy is present with mild periventricular and deep white matter chronic microvascular ische michael changes.No areas of brain edema or evidence of midline shift. The paranasal sinuses and mastoids are clear. The calvarium is intact. IMPRESSION: No acute intracranial abnormality.
[2023-11-27 15:46] LABS: Anion Gap 11.1 mEq/L (5.0-15.0); Potassium 3.1 mEq/L (3.5-5.1); Troponin High Sensitivity 8.6 pg/mL (<58.9)
--- NOTE | 2023-11-27 15:47 | RAD REPORT ---
EXAM DESCRIPTION: RAD - Chest Single View - 11/27/2023 3:40 pm CLINICAL HISTORY: weakness Chest pain. COMPARISON: Chest Single View dated 06/29/2020 FINDINGS: Portable technique limits examination quality. The lungs are grossly clear. The heart is normal in size. No displaced fractures. IMPRESSION: No acute intrathoracic process suspected.
--- NOTE | 2023-11-27 16:58 | EDPHYS ---
Physician Documentation [facility] Name: Charlie Fisher Age: 63 yrs Sex: Female : 1960 Arrival Date: 11/27/2023 Time: 14:20 Bed 17 Private MD: ED Physician Ilia Lantigua HPI: 11/26 14:34 This 63 yrs old Female presents to ER via EMS with complaints of Numbness - Leg, jh7 multiple falls, weakness. 14:34 Onset: The symptoms/episode began/occurred 1 week(s) ago, and became worse 3 day(s) jh7 ago. 63-year-old female presents to the ER complaining of multiple falls, bilateral leg weakness/numbness and decreased appetite for the past 5 days. The patient states that she is now unable to walk because it feels like " she does not know where her legs are". History of a stomach ulcer in 2020 that she states has not been giving her any issues. Denies nausea, vomiting, diarrhea, chest pain, shortness of breath, and headache.. Historical: - Allergies: 14:34 No Known Allergies; rs5 - PMHx: 14:34 arthritis to knee; Bleeding stomach ulcer; rs5 - PSHx: 14:34 None; rs5 - Immunization history:: Adult Immunizations up to date. - Infectious Disease History:: Denies. - Social history:: Smoking status: Patient denies any tobacco usage or history of. ROS: 14:34 Constitutional: Per HPI jh7 Exam: 14:34 Constitutional: This is a well developed, well nourished patient who is awake, alert, jh7 and in no acute distress. Head/Face: Normocephalic, atraumatic. Neck: Trachea midline, no thyromegaly or masses palpated, and no cervical lymphadenopathy. Supple, full range of motion without nuchal rigidity, or vertebral point tenderness. No Meningismus. Cardiovascular: Regular rate and rhythm with a normal S1 and S2. No gallops, murmurs, or rubs. Normal PMI, no JVD. No pulse deficits. Respiratory: Lungs have equal breath sounds bilaterally, clear to auscultation and percussion. No rales, rhonchi or wheezes noted. No increased work of breathing, no retractions or nasal flaring. Abdomen/GI: Soft, non-tender, with normal bowel sounds. No distension or tympany. No guarding or rebound. No evidence of tenderness throughout. Back: No spinal tenderness. No costovertebral tenderness. Full range of motion. 14:34 Musculoskeletal/extremity: ROM: full active range of motion, Circulation is intact in all extremities. numbness, decreased sensation, Loss of proprioception in bilateral legs Weight bearing: is unable to bear weight, 14:34 Skin: injury, contusion(s), that are superficial, of the right leg and left leg, 14:34 Neuro: Orientation: to person, place, time \\T\\ situation. Mentation: is normal, Memory: is normal, Motor: is normal, Sensation: numbness, that is moderate, of the right foot, left foot, right leg and left leg, Loss of proprioception in bilateral legs, Gait: not tested. Patient unable to walk. Vital Signs: 14:31 BP 112 / 74; Pulse 77; Resp 18; Pulse Ox 97% on R/A; rs5 17:24 Temp 97.8(O); Weight 71.21 kg; rs5 20:00 BP 114 / 72; Pulse 100; Resp 18; Pulse Ox 97% on R/A; rv 23:45 BP 109 / 61; Pulse 94; Resp 19; Temp 98; Pulse Ox 97% ; rv [place] Coma Score: 23:45 Eye Response: spontaneous(4). Motor Response: obeys commands(6). Verbal Response: rv oriented(5). Total: 15. MDM: 14:34 Patient medically screened. jh7 16:10 ED course: Informed the patient that her hemoglobin was lower than normal. She denied 7 abdominal pain, nausea, vomiting, or any black stool. She reports that she is aware of how it feels to have a GI bleed and that she is not experiencing any of the symptoms.. 17:28 Differential diagnosis: Acute CVA, TIA, spinal cord lesion, spinal cord injury, jh7 Guillain-Sousa, myasthenia gravis, multiple sclerosis. Data reviewed: vital signs, nurses notes, lab test result(s), radiologic studies, CT scan. Management of patient was discussed with the following: Dr. Lantigua, ED attending physician. He advised transfer for MRI to rule out spinal cord lesion and neurological eval.. Counseling: I had a detailed discussion with the patient and/or guardian regarding the historical points, exam findings, and any diagnostic results supporting the discharge/admit diagnosis, the need to transfer to another facility, for higher level of care, [facility] does not immediately have the required specialist. 18:30 ED course: Patient unable to tolerate potassium pills and requested liquid.. [facility] 18:45 Management of patient was discussed with the following: Hospitalist: Dr. Corey. He [facility] stated that he would except the patient for a neuro telemetry bed, but needed clearance with his neurologist first. He stated that he will call us back once neuro has agreed to take the patient.. 11/26 15:02 Order name: Basic Metabolic Panel; Complete Time: 15:47 [facility] 11/26 15:02 Order name: CBC with Diff; Complete Time: 18:20 [facility] 11/26 15:02 Order name: Troponin HS; Complete Time: 15:47 [facility] 11/26 18:19 Order name: CBC Smear Scan; Complete Time: 18:20 [facility] 11/26 15:02 Order name: XRAY Chest (1 view); Complete Time: 15:47 [facility] 11/26 15:02 Order name: CT Head Brain wo Cont; Complete Time: 15:47 [facility] 11/26 15:02 Order name: EKG; Complete Time: 15:03 [facility] 11/26 15:02 Order name: Cardiac monitoring; Complete Time: 15:29 [facility] 11/26 15:02 Order name: EKG - Nurse/Tech; Complete Time: 15:29 [facility] 11/26 15:02 Order name: IV Saline Lock; Complete Time: 15:29 [facility] 11/26 15:02 Order name: Labs collected and sent; Complete Time: 15:29 [facility] 11/26 15:02 Order name: O2 Per Protocol; Complete Time: 15:29 [facility] 11/26 15:02 Order name: O2 Sat Monitoring; Complete Time: 15:29 [facility] EC:38 Rate is 86 beats/min. Rhythm is regular. QRS [place] is Normal. HI interval is normal at [facility] 146 msec. QRS interval is normal at 84 msec. QT interval is prolonged at 436 msec. No Q waves. Clinical impression: NSR w/ Non-specific ST/T Changes. Administered Medications: 17:05 Drug: Potassium Chloride PO 40 mEq PO once Route: PO; rs5 17:30 Follow up: Response: No adverse reaction rs5 18:15 Drug: Ondansetron IVP 4 mg IVP once; over 2 minutes Route: IVP; Site: left antecubital; rs5 23:46 Follow up: Response: No adverse reaction rv 18:15 Drug: Potassium PO Effervescent Tablet 50 mEq PO once; dissolve in 4 ounces of water or rs5 juice Route: PO; 23:46 Follow up: Response: No adverse reaction rv Disposition Summary: 11/27/23 16:57 Transfer Ordered Notes: Transfer Location: [place] [id number] Reason: Higher level of care jh7 Condition: Fair jh7 Problem: new [facility] Symptoms: are unchanged jh7 Accepting Physician: accepting (11/27/23 23:46) rv Diagnosis - Bilateral leg weakness jh7 - Bilateral leg numbness jh7 - Repeated falls jh7 Forms: - Medication Reconciliation Form jh7 - SBAR form 7 Signatures: Dispatcher [employer] EDMS Salinas Kaba, RN RN rv Tonya Vargas, PUMPER BREWERY PUMPER BREWERY 7 Shan Fry RN RN rs5 Corrections: (The following items were deleted from the chart) 18:21 16:10 ED course: Inform the patient that her hemoglobin was lower than normal. She 7 denied abdominal pain, nausea, vomiting, or any black stool. She reports that she is aware of how it feels to have a GI bleed and that she is not experiencing any of the symptoms.. 7 19:03 17:28 Differential diagnosis: Acute CVA, TIA, spinal cord lesion, spinal cord injury, 7 Oleksandr [facility] 23:46 16:57 accepting jh7 rv
--- NOTE | 2023-11-27 16:58 | ER ---
Nurse's Notes [facility] Name: Charlie Fisher Age: 63 yrs Sex: Female : 1960 Arrival Date: 11/27/2023 Time: 14:20 Bed 17 Private MD: Diagnosis: Bilateral leg weakness;Bilateral leg numbness;Repeated falls Presentation: 11/26 14:31 Chief complaint: EMS states: "Right leg numbness and general weakness that started 7 rs5 days ago and is now radiating to upper back. Pt denies pain at this moment". Coronavirus screen: At this time, the client does not indicate any symptoms associated with coronavirus-19. Ebola Screen: No symptoms or risks identified at this time. Initial Sepsis Screen: Does the patient meet any 2 criteria? No. Patient's initial sepsis screen is negative. Does the patient have a suspected source of infection? No. Patient's initial sepsis screen is negative. Risk Assessment: Do you want to hurt yourself or someone else? Patient reports no desire to harm self or others. Onset of symptoms was November 27, 2023. 14:31 Method Of Arrival: EMS: [facility] rs5 14:31 Acuity: GALA 3 rs5 Triage Assessment: 14:34 General: Appears in no apparent distress. uncomfortable, Behavior is cooperative. Pain: rs5 Denies pain. Historical: - Allergies: 14:34 No Known Allergies; rs5 - PMHx: 14:34 arthritis to knee; Bleeding stomach ulcer; rs5 - PSHx: 14:34 None; rs5 - Immunization history:: Adult Immunizations up to date. - Infectious Disease History:: Denies. - Social history:: Smoking status: Patient denies any tobacco usage or history of. Screenin:33 [facility] ED Fall Risk Assessment (Adult) History of falling in the last 3 months, rs5 including since admission No falls in past 3 months (0 pts) Confusion or Disorientation No (0 pts) Intoxicated or Sedated No (0 pts) Impaired Gait No (0 pts) Mobility Assist Device Used No (0 pt) Altered Elimination No (0 pt) Score/Fall Risk Level 0 - 2 = Low Risk Oriented to surroundings, Maintained a safe environment. 14:33 Abuse screen: Denies threats or abuse. Nutritional screening: No deficits noted. rs5 Tuberculosis screening: No symptoms or risk factors identified. Assessment: 14:33 General: Appears in no apparent distress. uncomfortable, Behavior is calm, cooperative. rs5 Pain: Denies pain. Neuro: Level of Consciousness is awake, alert, obeys commands, Oriented to person, place, time, situation, Mission Analyst are equal bilaterally Moves all extremities. Gait is steady, Speech is normal, Facial symmetry appears normal, pt states "I've been having numbness of my right leg and it is now radiating to my back and it's been bothering me". Cardiovascular: Rhythm is regular. Respiratory: Airway is patent Respiratory effort is even, unlabored, Respiratory pattern is regular, symmetrical. GI: Abdomen is round non-distended, Abd is soft and non tender X 4 quads. : No signs and/or symptoms were reported regarding the genitourinary system. EENT: No signs and/or symptoms were reported regarding the EENT system. Derm: Skin is intact, Skin is pink, warm \\T\\ dry. Musculoskeletal: Range of motion: intact in all extremities. 15:37 Reassessment: Patient and/or family updated on plan of care and expected duration. Pain rs5 level reassessed. Patient is alert, oriented x 3, equal unlabored respirations, skin warm/dry/pink. 17:02 Reassessment: No changes from previously documented assessment. rs5 17:43 Reassessment: Patient and/or family updated on plan of care and expected duration. Pain rs5 level reassessed. Patient is alert, oriented x 3, equal unlabored respirations, skin warm/dry/pink. Vital Signs: 14:31 BP 112 / 74; Pulse 77; Resp 18; Pulse Ox 97% on R/A; rs5 17:24 Temp 97.8(O); Weight 71.21 kg; rs5 20:00 BP 114 / 72; Pulse 100; Resp 18; Pulse Ox 97% on R/A; rv 23:45 BP 109 / 61; Pulse 94; Resp 19; Temp 98; Pulse Ox 97% ; rv [place] Coma Score: 23:45 Eye Response: spontaneous(4). Motor Response: obeys commands(6). Verbal Response: rv oriented(5). Total: 15. ED Course: 14:30 Patient arrived in ED. rs5 14:31 Fry, Shan, RN is Primary Nurse. rs5 14:32 Arm band placed on right wrist. rs5 14:33 Patient has correct armband on for positive identification. Placed in gown. Bed in low rs5 position. Side rails up X2. 14:34 Triage completed. rs5 14:34 Tonya Vargas FNP is [facility]. jh7 14:34 Ilia Lantigua MD is Attending Physician. jh7 14:35 Inserted saline lock: 22 gauge in left forearm, using aseptic technique. rs5 15:36 CT Head Brain wo Cont In Process Unspecified. EDMS 15:42 XRAY Chest (1 view) In Process Unspecified. EDMS 17:07 initiated a transfer with Marcia Shen from the [facility]. eb 17:43 No provider procedures requiring assistance completed. rs5 18:39 connected the hospitalist orthodontic band maker for [facility] With Marjorie MATT for patient transfer eb consultation. 20:53 [facility] called for transport, no trucks available. ty 20:56 [facility] called for transport, ETA 1.5 - 2 hours. ty 23:26 [facility] called for updated ETA 4 Minutes. ty 23:45 Patient transferred, IV remains in place. rv Administered Medications: 17:05 Drug: Potassium Chloride PO 40 mEq PO once Route: PO; rs5 17:30 Follow up: Response: No adverse reaction rs5 18:15 Drug: Ondansetron IVP 4 mg IVP once; over 2 minutes Route: IVP; Site: left antecubital; rs5 23:46 Follow up: Response: No adverse reaction rv 18:15 Drug: Potassium PO Effervescent Tablet 50 mEq PO once; dissolve in 4 ounces of water or rs5 juice Route: PO; 23:46 Follow up: Response: No adverse reaction rv Medication: 17:43 VIS not applicable for this client. rs5 Outcome: 16:57 ER care complete, transfer ordered by . jh7 23:45 Transferred by ground EMS to [facility], Transfer form completed. rv X-rays sent w/ patient. 23:45 Condition: good 23:45 Instructed on the need for transfer, 23:46 Patient left the ED. rv Signatures: Dispatcher [employer] EDMS Newman, CorinnaSalinas Garza, RN RN rv Tonya Vargas, WEED ERADICATOR WEED ERADICATOR jh7 Shan Fry RN RN rs5 Marisabel Hughes RN RN cm10 Regulo Maldonado Corrections: (The following items were deleted from the chart) 22:36 20:18 [facility] ED Fall Risk Assessment (Adult) Score/Fall Risk Level 0 - 2 = Low Risk cm10 cm10
[2023-11-27] MEDS ORDERED: POTASSIUM CL SA 10 MEQ TAB PO ONE (17:11)
[2023-11-27] MEDS ORDERED: POTASSIUM 25 MEQ EFFERV TAB ONE (18:17)
[2023-11-27] MEDS ORDERED: ONDANSETRON 4 MG/2 ML VIAL ONE (18:17)
[2023-11-27 18:18] LABS: Toxic Granulation PRESENT; White Blood Cell Scan OK (OK)
[2023-11-27 18:19] LABS: Blood Morphology Comment NOTED (NOT SEEN); Macrocytosis 3+; Platelet Estimate ADEQ
[2023-11-27 23:58] VITALS: O2SAT 97
[2023-11-28 00:36] VITALS: BP 109/61; TEMP 98
--- NOTE | 2023-11-29 13:22 | EKG ---
Test Date: 2023-11-27 Test Time: 15:12:23 Oliver Filter Operator: TIFFANI MEASUREMENT RESULTS: Intervals: Rate: 86 WI: 146 QRSD: 84 QT: 436 QTc: 521 Cherry Log: P: 80 WI: 146 QRS: 9 T: 75 INTERPRETIVE STATEMENTS: Normal sinus rhythm Nonspecific ST and T wave abnormality Prolonged QT Abnormal ECG Compared to ECG 06/29/2020 03:03:27 ST (T wave) deviation now present Prolonged QT interval now present Electronically Signed On 11-29-23 13:17:52 CDT by Harsha Palencia
== END 2023-11-27 23:46 | disposition short-term general hospital (02) ==
LOC: ER 14:20
DX: R53.1 Weakness (principal); R20.0 Anesthesia of skin; R29.6 Repeated falls
CPT/HCPCS: 93005; 85025; 80048; 36415; 84484; 70450; 71045; 96374; 99285; J2405

== ENCOUNTER 2024-02-14 11:21 | Inpatient (IN) | payer BC ==
--- NOTE | 2024-02-14 12:28 | RAD REPORT ---
EXAM DESCRIPTION: CT - Abdomen Pelvis Wo Contrast - 02/14/2024 11:46 am CLINICAL HISTORY: ABD PAIN COMPARISON: Abdomen Pelvis W Contrast dated 06/09/2021 TECHNIQUE: Thin cut axial CT imaging of the abdomen and pelvis was performed without IV contrast. Mu ltiplanar reformats were generated and reviewed. All CT scans are performed using dose optimization technique as appropriate and may include automated exposure control or mA/KV adjustment according to patient size. FINDINGS: No suspicious findings in the lung bases. The liver shows diffuse parenchymal hypoattenuation suggesting steatosis. There is progressive subjec tive hepatomegaly since the prior exam. Spleen, adrenal glands, and pancreas show no suspicious findi ngs. Gallbladder and biliary tree are also without suspicious finding. Symmetric renal contour, without suspicious parenchymal findings within limits of noncontrast techniq ue. No evidence of radiopaque calculi or hydroureteronephrosis. No dilated bowel loops or bowel wall thickening. No free air, free fluid or inflammatory stranding. N o hernia, mass or bulky lymphadenopathy. The urinary bladder shows mild diffuse wall prominence. This could relate to a degree of underdistention versus sequelae of cystitis. No suspicious bony findings. IMPRESSION: Progressive hepatomegaly and diffuse parenchymal hypoattenuation of the liver. Please co rrelate clinically for hepatitis or other medical liver disease. Mild bladder wall thickening, which could relate to a degree of underdistention versus sequelae of cy stitis.
--- NOTE | 2024-02-14 12:30 | RAD REPORT ---
EXAM DESCRIPTION: Violat Single View02/14/2024 11:56 am CLINICAL HISTORY: COUGH COMPARISON: Abdomen 1 View (KUB) dated 12/05/2023; Chest Single View dated 11/27/2023; Chest Single Vi ew dated 06/29/2020 TECHNIQUE: Portable AP view of the chest. FINDINGS: The lungs are clear. No pneumothorax or effusion. The cardiomediastinal contours are unre markable. IMPRESSION: No acute cardiopulmonary process.
[2024-02-14 12:45] LABS: Absolute Basophils 0.1 K/uL (0-0.5); Absolute Monocytes 1.3 K/uL (0.1-1.3); Absolute Neutrophil 11.4 K/uL (1.8-8.0); Basophils % 0.4 % (0-1.3); Lymphocytes % 7.5 % (15.3-44.8); MCH 30.5 pg (27.0-35.0); MCV 95.3 fL (80-100); MPV 9.7 fL (7.6-11.3); Monocytes % 9.6 % (3.3-12.3); Neutrophils % 82.5 % (41.7-73.7); Platelets 277 thou/uL (152-406)
[2024-02-14] MEDS ORDERED: PANTOPRAZOLE 40 MG INJ ONE (12:58)
[2024-02-14] MEDS ORDERED: CEFTRIAXONE 1000 MG/VIAL ONE (12:58)
[2024-02-14 12:59] LABS: PT Prothrombin Time 16.7 SECONDS (9.4-12.5); PTT, Activated Partial Thromb 29.9 SECONDS (24.3-36.9); Protime INR 1.51
[2024-02-14] MEDS ORDERED: OCTREOTIDE ACETATE 500 MCG/ML ONE (12:59)
[2024-02-14] MEDS ORDERED: NA CHLORIDE 0.9% 500 ML ONE (12:59)
[2024-02-14] MEDS ORDERED: OCTREOTIDE ACETATE 100 MCG/ML ONE (12:59)
[2024-02-14] MEDS ORDERED: NA CHLORIDE 0.9% 250 ML ONE ×2 (12:59→13:23)
[2024-02-14] MEDS ORDERED: NA CHLORIDE 0.9% 1,000 ML ONE (12:59)
[2024-02-14 13:00] LABS: Albumin 1.9 g/dL (3.4-5.0); Albumin/Globulin Ratio 0.6 (1.1-1.8); Anion Gap 12.8 mEq/L (5.0-15.0); Bilirubin Total 1.3 mg/dL (0.2-1.0); Globulin 3.1 g/dL (2.3-3.5); Potassium 3.8 mEq/L (3.5-5.1)
[2024-02-14] MEDS: OCTREOTIDE 500 MCG in NA CHLORIDE 0.9% 500 ML IV SCH ×2 (13:00→23:31)
[2024-02-14] MEDS: PANTOPRAZOLE INJ 80 MG in NA CHLORIDE 0.9% 250 ML IV SCH ×2 (13:00→23:31)
--- NOTE | 2024-02-14 13:30 | EDPHYS ---
Physician Documentation [facility] Name: Charlie Fisher Age: 63 yrs Sex: Female : 1960 Arrival Date: 02/14/2024 Time: 11:21 Bed 3 Private MD: ED Physician Ilia Lantigua HPI: 02/13 11:40 This 63 yrs old Female presents to ER via EMS with complaints of GI Bleeding, ec2 Nausea/Vomiting/Diarrhea. 11:44 Patient arrives today for evaluation of hematemesis and melena. Patient with multiple ec2 bouts of bloody emesis today. Patient with generalized abdominal pain, also black stools. History of previous gastric ulcer. Patient reports that she is on Protonix.. 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 - Infectious Disease History:: Denies. - Social history:: Smoking status: Patient denies any tobacco usage or history of. Patient uses alcohol, only on a social basis. weekly. every other day. ROS: 11:44 Constitutional: as per hpi ec2 Exam: 11:44 Constitutional: GEN: NAD Head: atraumatic Eyes: EOMI Ears: External ears are ec2 normal. CV: Tachycardia LUNGS: no respiratory distress ABD: non-distended, soft, generally tender, guarding, not rigid. SKIN: no evidence of rashes MSK: no evidence of trauma NEURO: moves all extremities equally Vital Signs: 11:34 Pulse 119; Resp 16; Pulse Ox 100% on R/A; Weight 65.77 kg; Height 5 ft. 4 in. ; Pain ld1 0/10; 11:35 BP 81 / 59; ld1 12:57 BP 89 / 63; Pulse 107; ec2 13:15 BP 91 / 69; ec2 13:16 BP 91 / 69; Pulse 119; Resp 18; Pulse Ox 99% on R/A; ld1 15:26 BP 94 / 53; Pulse 105; ec2 11:34 Body Mass Index 24.89 (65.77 kg, 162.56 cm) ld1 11:34 Pain Scale: Adult ld1 MDM: 11:26 Patient medically screened. ec2 11:44 ED course: EKG obtained, independently reviewed and interpreted by me, shows sinus ec2 tachycardia, rate 117, no acute ST segment elevations, intervals are nonconcerning.. 11:44 Data reviewed: vital signs. ED course: Patient arrives today for evaluation of melena ec2 and hematemesis. Examination remarkable for tachycardic individual who is ill-appearing. Will obtain lab work, CT imaging. Differential includes gastric ulcer, esophageal varices, intestinal bleeding, liver disease.. 11:45 ED course: I will give the patient Protonix, octreotide, type and screen and transfuse ec2 the patient.. 11:46 ED course: Patient does meet SIRS criteria however my concern is for acute blood loss ec2 causing the patient's hypotension and tachycardia. Accordingly I will aggressively treat with blood products as opposed to vasopressors which could potentiate worsening bleeding.. 11:53 ED course: Rectal examination does show melena. Patient with hematemesis in her emesis ec2 bag.. 12:35 ED course: CT abdomen pelvis shows hepatitis, chest x-ray with no acute intrathoracic ec2 process. . 13:21 ED course: Metabolic profile is reassuring. No acute LFT abnormalities, T. bili 1.3, ec2 lipase is nonactionable. Ultimately my concern is bleeding ulcer causing patient's hypotension, tachycardia as well as anemia. Will continue with transfusion, admit the patient for GI evaluation. . 13:28 ED course: I discussed the case with GI, Dr. Scott who agrees to help manage this ec2 patient and keep patient NPO. I discussed case with hospitalist who agrees to accept the patient for admission. Patient with hypotensive blood pressures, patient is pending blood transfusion.. 02/13 11:27 Order name: CBC with Diff; Complete Time: 12:57 ec2 02/13 11:27 Order name: CMP; Complete Time: 13:21 ec2 02/13 11:27 Order name: Lipase; Complete Time: 13:21 ec2 02/13 11:27 Order name: Urinalysis w/ reflexes 2 02/13 11:27 Order name: Type And Screen ec2 02/13 11:27 Order name: PT-INR; Complete Time: 13:21 ec2 02/13 11:27 Order name: Ptt, Activated; Complete Time: 13:21 ec2 02/13 11:39 Order name: Blood Culture Adult (2) ec2 02/13 11:52 Order name: Bb Add On bd 02/13 13:41 Order name: ABO/RH no charge; Complete Time: 13:49 [facility] 02/13 14:04 Order name: Packed RBC Leukored [facility] 02/13 14:06 Order name: Lactate w/ 2H reflex if indic.; Complete Time: 14:38 [facility] 02/13 16:27 Order name: Ghost Lactate-NO COLLECT Timer [facility] 02/13 11:27 Order name: CT Abd/Pelvis - Without Contrast; Complete Time: 12:35 ec2 02/13 11:27 Order name: CXR XRAY; Complete Time: 12:35 2 02/13 14:26 Order name: CONS Physician Consult [facility] 02/13 11:27 Order name: IV Saline Lock; Complete Time: 11:38 ec2 02/13 11:27 Order name: Labs collected and sent; Complete Time: 12:50 2 02/13 11:27 Order name: EKG - Nurse/Tech; Complete Time: 11:36 2 02/13 11:52 Order name: Consent for Blood Transfusion; Complete Time: 14:54 ec2 02/13 11:52 Order name: IV Saline Lock; Complete Time: 11:56 2 02/13 14:06 Order name: Misc. Order: lactic acid; Complete Time: 14:54 ec2 Administered Medications: 13:15 Drug: Rocephin IV 1 grams IV at calculated rate once; Given slow IV push per pharmarcy ld1 instructions Route: IV; Rate: calculated rate; Site: right antecubital; 13:16 Drug: Pantoprazole IVP 80 mg IVP once Route: IVP; Site: left antecubital; ld1 13:16 Drug: Pantoprazole IV 8 mg/hr IV at 25 ml/hr continuous; (Standard dilution is 80 mg in ld1 250 mL NS) Route: IV; Rate: 25 ml/hr; Site: left antecubital; 13:16 Drug: Octreotide IV 50 mcg IV at bolus once Route: IV; Rate: bolus; Site: right wrist; ld1 13:16 Drug: Octreotide Infusion (50 mcg/hr) - (Octreotide IV 500 mcg, NS 0.9% IV 500 ml) IV ld1 at 50 ml/hr continuous Route: IV; Rate: 50 ml/hr; Site: right wrist; 13:16 Drug: NS 0.9% IV 1000 ml IV at 1 bolus Per protocol; 1000 mL bolus Route: IV; Rate: 1 ld1 bolus; Site: right antecubital; Disposition Summary: 02/14/24 13:29 Hospitalization Ordered Notes: Hospitalization Status: Inpatient Admission ec2 Provider: Yg Beckham ec2 Condition: Stable ec2 Problem: new ec2 Symptoms: have improved ec2 Bed/Room Type: Standard ec2 Location: Intensive Care Unit(02/14/24 16:50) bd Room Assignment: 5-(02/14/24 17:20) aa5 Diagnosis - Melena ec2 - GI Bleed/ Gastrointestinal hemorrhage, unspecified ec2 - Anemia, unspecified ec2 Forms: - Medication Reconciliation Form ec2 - SBAR form ec2 - Leadership Thank You Letter ec2 Critical care time excluding procedures: 13:17 Critical care time: Bedside Care: 30 minutes, Consultation: 5 minutes. Total time: 35 ec2 minutes Signatures: Dispatcher [employer] EDMS Ramila Pacheco Shelly, [employer]SE[employer]-C [employer]-Csnw Stephany Daigle RN RN aa5 Jacquelyn Vides RN RN ld1 Jenny Lyles, HAIM RN kb3 Ilia Lantigua MD MD ec2 Corrections: (The following items were deleted from the chart) 11: 11:27 CBC+H.LAB.BRZ ordered. EDMS EDMS 11: 11:27 COMPREHENSIVE METABOLIC PANEL+C.LAB.BRZ ordered. EDMS EDMS 11: 11:27 LIPASE+C.LAB.BRZ ordered. EDMS EDMS 11: 11:27 Urinalysis+U.LAB.BRZ ordered. EDMS EDMS 11: 11:27 TYPE AND SCREEN+BB.LAB.BRZ ordered. EDNM EDMS 11: 11:27 PROTIME (+INR)+COAG.LAB.BRZ ordered. EDMS EDMS 11: 11:27 PTT, ACTIVATED+COAG.LAB.BRZ ordered. EDMS EDMS 11: 11:27 Abdomen Pelvis Wo Con+CT.RAD.BRZ ordered. EDMS EDMS 11:40 11:40 BLOOD CULTURE*+BA.LAB.BRZ ordered. EDMS EDMS 14:04 11:52 PACKED RBC LEUKORED+BB.LAB.BRZ ordered. EDMS EDMS 14:04 11:54 ABO/RH typing ordered. EDMS EDMS 14:04 11:54 Antibody Screen ordered. EDMS EDMS 14:45 13:29 Intensive Care Unit ec2 kb3 14:45 13:29 ec2 kb3 16:50 14:45 [facility] ER HOLD kb3 bd 16:50 14:45 ERHOLD- kb3 bd 17:15 16:50 5- bd aa5 17:20 17:15 aa5 aa5
--- NOTE | 2024-02-14 13:30 | ER ---
Nurse's Notes [facility] Name: Charlie Fisher Age: 63 yrs Sex: Female : 1960 Arrival Date: 02/14/2024 Time: 11:21 Bed 3 Private MD: Diagnosis: Melena;GI Bleed/ Gastrointestinal hemorrhage, unspecified;Anemia, unspecified Presentation: 02/13 11:34 Chief complaint: EMS states: toned out to patient home for throwing up blood. Pt ld1 reports vomiting blood since last night, black tarry stools X 3 days. Coronavirus screen: At this time, the client does not indicate any symptoms associated with coronavirus-19. Ebola Screen: No symptoms or risks identified at this time. Initial Sepsis Screen: Does the patient have a suspected source of infection? No. Patient's initial sepsis screen is negative. Risk Assessment: Do you want to hurt yourself or someone else? Patient reports no desire to harm self or others. Onset of symptoms was February 14, 2024 at 11:35. 11:34 Method Of Arrival: EMS: [facility] ld1 11:34 Acuity: GALA 3 ld1 Triage Assessment: 11:35 General: Appears in no apparent distress. comfortable, Behavior is calm, cooperative, ld1 appropriate for age. Pain: Denies pain. EENT: No signs and/or symptoms were reported regarding the EENT system. Neuro: Level of Consciousness is awake, alert, obeys commands, Oriented to person, place, time, situation, Appropriate for age. Cardiovascular: Capillary refill < 3 seconds Patient's skin is warm and dry. Rhythm is sinus tachycardia. Respiratory: Airway is patent Respiratory effort is even, unlabored. GI: Abdomen is flat, non-distended, Reports bloody stool, epigastric pain, nausea, vomiting. : No signs and/or symptoms were reported regarding the genitourinary system. Derm: No signs and/or symptoms reported regarding the dermatologic system. Musculoskeletal: No signs and/or symptoms reported regarding the musculoskeletal system. 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 - Infectious Disease History:: Denies. - Social history:: Smoking status: Patient denies any tobacco usage or history of. Patient uses alcohol, only on a social basis. weekly. every other day. Screenin:37 [facility] ED Fall Risk Assessment (Adult) History of falling in the last 3 months, ld1 including since admission No falls in past 3 months (0 pts) Confusion or Disorientation No (0 pts) Intoxicated or Sedated No (0 pts) Impaired Gait No (0 pts) Mobility Assist Device Used No (0 pt) Altered Elimination No (0 pt) Score/Fall Risk Level 0 - 2 = Low Risk. [facility] ED Fall Risk Assessment (Adult) Score/Fall Risk Level 0 - 2 = Low Risk Oriented to surroundings, Maintained a safe environment, Educated pt \T\ family on fall prevention, incl call for assistance when getting out of bed, Assessed \T\ reinforced patient's understanding of fall precautions, Provided non-skid footwear, Hourly rounding (assess needs \T\ fall precautionary measures) done, Used ambulatory aids as needed (educated on \T\ assisted with), Used gait belt as appropriate. Abuse screen: Denies threats or abuse. Denies injuries from another. Nutritional screening: No deficits noted. Tuberculosis screening: No symptoms or risk factors identified. Assessment: 11:37 Reassessment: See triage assessment. ld1 13:10 Reassessment: ERP at bedside - pt c/o nausea. ld1 Vital Signs: 11:34 Pulse 119; Resp 16; Pulse Ox 100% on R/A; Weight 65.77 kg; Height 5 ft. 4 in. ; Pain ld1 0/10; 11:35 BP 81 / 59; ld1 12:57 BP 89 / 63; Pulse 107; ec2 13:15 BP 91 / 69; ec2 13:16 BP 91 / 69; Pulse 119; Resp 18; Pulse Ox 99% on R/A; ld1 15:26 BP 94 / 53; Pulse 105; ec2 11:34 Body Mass Index 24.89 (65.77 kg, 162.56 cm) ld1 11:34 Pain Scale: Adult ld1 ED Course: 11:25 Patient arrived in ED. ec2 11:25 Ilia Lantigua MD is Attending Physician. ec2 11:33 Jacquelyn Vides RN is Primary Nurse. ld1 11:35 Triage completed. ld1 11:36 EKG done, by ED staff, reviewed by Ilia Lantigua MD. ap3 11:37 No provider procedures requiring assistance completed. Maintain EMS IV. Dressing ld1 intact. Good blood return noted. Site clean \T\ dry. Gauge \T\ site: 20G RW. 11:37 Patient has correct armband on for positive identification. Placed in gown. Bed in low ld1 position. Call light in reach. Side rails up X2. vehicle monitor technician on. Pulse ox on. NIBP on. Door closed. Noise minimized. Warm blanket given. 11:47 CT Abd/Pelvis - Without Contrast In Process Unspecified. EDMS 11:58 CXR XRAY In Process Unspecified. EDMS 12:45 Inserted saline lock: 22 gauge in left forearm, using aseptic technique. kb3 12:50 Inserted saline lock: 20 gauge in left antecubital area, using aseptic technique. kb3 12:54 Blood Culture Adult (2) Sent. ld1 13:29 Yg Beckham is Hospitalizing Provider. ec2 Administered Medications: 13:15 Drug: Rocephin IV 1 grams IV at calculated rate once; Given slow IV push per pharmarcy ld1 instructions Route: IV; Rate: calculated rate; Site: right antecubital; 13:16 Drug: Pantoprazole IVP 80 mg IVP once Route: IVP; Site: left antecubital; ld1 13:16 Drug: Pantoprazole IV 8 mg/hr IV at 25 ml/hr continuous; (Standard dilution is 80 mg in ld1 250 mL NS) Route: IV; Rate: 25 ml/hr; Site: left antecubital; 13:16 Drug: Octreotide IV 50 mcg IV at bolus once Route: IV; Rate: bolus; Site: right wrist; ld1 13:16 Drug: Octreotide Infusion (50 mcg/hr) - (Octreotide IV 500 mcg, NS 0.9% IV 500 ml) IV ld1 at 50 ml/hr continuous Route: IV; Rate: 50 ml/hr; Site: right wrist; 13:16 Drug: NS 0.9% IV 1000 ml IV at 1 bolus Per protocol; 1000 mL bolus Route: IV; Rate: 1 ld1 bolus; Site: right antecubital; Medication: 11:37 VIS not applicable for this client. ld1 Outcome: 13:29 Decision to Hospitalize by Provider. ec2 18:03 Patient left the ED. aa5 Signatures: Dispatcher [employer] Stephany Lutz RN RN aa5 Wendi Partida RN RN ap3 Jacquelyn Vides RN RN ld1 Jenny Lyles RN RN kb3 Ilia Lantigua MD MD ec2
[2024-02-14] MEDS: NA CHLORIDE 0.9% 1,000 ML IV SCH (15:22)
[2024-02-14] MEDS ORDERED: ONDANSETRON 4 MG/2 ML VIAL IV PRN (15:22)
[2024-02-14 16:09] VITALS: BMI 25.3
--- NOTE | 2024-02-14 16:20 | P.HP ---
Certification for Inpatient Patient admitted to: Inpatient With expected LOS: >2 Midnights Patient will require the following post-hospital care: None Practitioner: I am a practitioner with admitting privileges, knowledge of patient current condition, hospital course, and medical plan of care. Services: Services provided to patient in accordance with Admission requirements found in Title 42 Section 412.3 of the Code of Federal Regulations Patient History Date of Service: 02/14/24 Reason for admission: Upper GI bleed History of Present Illness: 63-year-old female with history of previous bleeding gastric ulcer about 4 years ago, osteoarthritis presents emergency room chief complaint of vomiting bright red blood, melena. She reports since last night she has had 4 episodes of vomiting bright red blood as well as melena at home. She does admit to drinking regularly and NSAID use about once per week given her arthritis pain. Patient had a episode of vomiting bright red blood upon arrival to the emergency department, she was evaluated in the emergency department her labs are significant for initial hemoglobin of 7.0 hematocrit 22.0 white blood cell count 13.9 INR is 1.51 creatinine 1.45 GFR 40 glucose 185 lactic acid 6.4 T. bili 1.3 AST 38 ALT [address] abdomen pelvis with IV contrast was performed which showed progressive he patomegaly and diffuse parenchymal hypoattenuation of the liver, mild bladder wall thickening which could relate to degree of underdistention versus sequela of cystitis. Patient with blood pressure in the 80s to 90 systolic and heart rate around 110, she has been ordered to units of blood cells and started on octreotide, Protonix, Rocephin. GI was consulted while patient was in the emergency dep artment and agrees to consult, patient be admitted to the ICU for further management of upper GI bleed. Allergies No Known Allergies Allergy (Verified 12/02/23 12:41) Home Medications: Cyanocobalamin [Vitamin B-12*] 1,000 mcg IM UD 12/03/23 Folic Acid 1 mg PO DAILY 12/03/23 Gabapentin [Neurontin] 300 mg PO BEDTIME 12/03/23 Ondansetron [Zofran (Odt)*] 4 mg PO Q4H PRN 12/03/23 Pantoprazole Sodium [Protonix] 40 mg PO BIDAC 12/03/23 Polyethyl Gly 3350 [Glycolax*] 1 packet PO DAILY PRN 12/03/23 Cranberry Fruit Extract 200 mg PO BID cap 12/10/23 Docusate/Senna [Senokot-S*] 2 tab PO BID tab 12/10/23 Ensure Enlive 237 ml PO TID can 12/10/23 Ferrous Sulfate [Ferrous Sulfate*] 325 mg PO DAILY tab 12/10/23 Ibuprofen [Motrin] 600 mg PO Q6HR #60 tab 12/10/23 Iron/FA/Vit B-Com W/C [Hemocyte Plus*] 1 tab PO DAILY WITH BREAKFAST #30 tab 12/10/23 Meclizine HCl [Antivert*] 25 mg PO TID PRN #30 tab 12/10/23 Megestrol [Megace*] 40 mg PO BID #60 tab 12/10/23 Tetrahydrozoline HCl [Visine*] 1 drops OPTH TID bottle 12/10/23 levoFLOXacin [Levaquin*] 750 mg PO DAILY 3 Days #3 tab 12/10/23 - Past Medical/Surgical History Has patient received pneumonia vaccine in the past: Yes Diabetic: No -: Gastric ulcers -: Osteoarthritis Past Surgical History: Unable to obtain Psychosocial/ Personal History: Lives at home with family - Social History Smoking Status: Never smoker Alcohol use: No CD- Drugs: No Caffeine use: No Place of Residence: Home Review of Systems 10-point ROS is otherwise unremarkable Gastrointestinal: Nausea, Vomiting, Melena, Other (Hematemesis) Physical Examination - Vital Signs Blood Pressure: 91/50 Pulse: 99 Respirations: 20 Pulse Ox (%): 99 - Physical Exam General: Alert, In no apparent distress, Oriented x3 HEENT: Atraumatic, PERRLA, Other (Mucous membranes pale) Neck: Supple, 2+ carotid pulse no bruit, No LAD Respiratory: Clear to auscultation bilaterally, Normal air movement Cardiovascular: Regular rate/rhythm, Normal S1 S2 Gastrointestinal: Normal bowel sounds, No tenderness Musculoskeletal: No tenderness Integumentary: No rashes Neurological: Normal speech, Normal strength at 5/5 x4 extr, Normal tone, Normal affect - Studies Laboratory Data (last 24 hrs) 02/14/24 02/14/24 02/14/24 12:34 12:34 12:34 WBC 13.90 H Hgb 7.0 L Hct 22.0 L Plt Count 277 PT 16.7 H INR 1.51 APTT 29.9 Sodium 137 Potassium 3.8 BUN 20 H Creatinine 1.45 H Glucose 185 H Total Bilirubin 1.3 H AST 38 H ALT 21 Alkaline Phosphatase 133 H Lipase 12 L Assessment and Plan - Plan Assessment: Upper GI bleed Hypovolemic shock secondary to GI bleed Lactic acidosis likely secondary to hypovolemic shock Alcohol use disorder Hepatic steatosis Plan: Upper GI bleed Hypovolemic shock secondary to GI bleed Lactic acidosis likely secondary to hypovolemic shock Alcohol use disorder Hepatic steatosis Being transfused 2 unit PBC at this time Admit ICU given risk of rapid deterioration Repeat lactate is indicated No evidence of sepsis/septic shock is no source of infection is currently identified Continue empiric antibioticsRocephin Continue Protonix/octreotide drips GI consultation placed, notified while patient was in ED N.p.o. History of gastric ulcer about 4 years ago managed with medications Admits to drinking socially but relatively frequently-counseled on need for cessation Monitor H&H closely throughout the evening/morning Appreciate further input from GI DVT PPX: SCD Code status: Full Discharge Plan: Home Plan to discharge in: Greater than 2 days - Advance Directives Does patient have a Living Will: No Does patient have a Durable POA for Healthcare: No - Code Status/Comfort Care Code Status Assessed: Yes (Full code) Critical Care: No Time Spent Managing Pts Care (In Minutes): 70
[2024-02-14] MEDS ORDERED: NOREPINEPHRINE 4 MG in D5W 250 ML IV SCH (18:00)
[2024-02-14] MEDS: FOLIC ACID 1 MG, MULTIVITAMINS INJ 10 ML, THIAMINE HCL 100 MG in NA CHLORIDE 0.9% 1,000 ML IV SCH (18:38)
[2024-02-14] MEDS ORDERED: NA CHLORIDE 0.9% 250 ML IV PRN (18:43)
[2024-02-14] MEDS: NA CHLORIDE 0.9% 250 ML ONE ×2 (18:54→19:47)
[2024-02-14] MEDS: ONDANSETRON 4 MG/2 ML VIAL IV SCH (19:00)
[2024-02-14] MEDS: NA CHLORIDE 0.9% 250 ML IV ONE (21:27)
[2024-02-15] MEDS: NA CHLORIDE 0.9% 100 ML ONE (00:35)
[2024-02-15 05:20] LABS: Absolute Basophils 0.1 K/uL (0-0.5); Absolute Lymphocytes (CBC) 1.7 K/uL (0.7-4.9); Absolute Monocytes 0.7 K/uL (0.1-1.3); Absolute Neutrophil 3.9 K/uL (1.8-8.0); Basophils % 1.1 % (0-1.3); Eosinophils % 0.2 % (0-4.4); Hematocrit 23.6 % (36.0-45.0); Hemoglobin 7.9 g/dL (12.0-15.0); MCH 30.7 pg (27.0-35.0); MCHC 33.5 g/dL (32.0-36.0); MCV 91.8 fL (80-100); MPV 9.8 fL (7.6-11.3); Neutrophils % 60.7 % (41.7-73.7); Nucleated Red Blood Cells % 0.1 % (0-0); PT Prothrombin Time 14.9 SECONDS (9.4-12.5); Platelets 163 thou/uL (152-406); Protime INR 1.34; RBC Red Blood Cell Count 2.57 M/uL (3.86-4.86); Red Cell Distribution Width 15.8 % (12.1-15.2)
[2024-02-15 05:43] LABS: Albumin 1.8 g/dL (3.4-5.0); Albumin/Globulin Ratio 0.7 (1.1-1.8); Anion Gap 8.4 mEq/L (5.0-15.0); Bilirubin Total 0.9 mg/dL (0.2-1.0); Globulin 2.5 g/dL (2.3-3.5); Potassium 3.4 mEq/L (3.5-5.1); Protein, Total 4.3 g/dL (6.4-8.2)
[2024-02-15] MEDS ORDERED: PROCHLORPERAZINE 5 MG TAB PO PRN (05:44)
[2024-02-15 06:47] LABS: Magnesium 1.3 mg/dL (1.6-2.4); Phosphorus 3.5 mg/dL (2.5-4.9)
[2024-02-15] MEDS: CEFTRIAXONE 1,000 MG in NA CHLORIDE 0.9% 50 ML IVPB SCH (07:56)
[2024-02-15] MEDS: KCL 20 MEQ/100 mL IVPB 20 MEQ/100 ML BAG IV SCH (07:56)
[2024-02-15] MEDS: Magnesium Sulfate 2gm IVPB 2 G/50 ML BAG IV ONE (07:56)
[2024-02-15] MEDS ORDERED: LIDOCAINE 1% MPF 5 ML VIAL ONE (08:35)
[2024-02-15] MEDS ORDERED: propofoL 200 MG/20 ML VIAL IV ONE (08:35)
[2024-02-15] MEDS ORDERED: ONDANSETRON 4 MG/2 ML VIAL ONE ×2 (08:54)
[2024-02-15] MEDS: NA CHLORIDE 0.9% 1,000 ML ONE (09:26)
[2024-02-15] MEDS ORDERED: EPINEPHRINE 1 MG/ML VIAL ONE (09:40)
[2024-02-15] MEDS: ONDANSETRON 4 MG/2 ML VIAL ONE (09:47)
--- NOTE | 2024-02-15 10:32 | P.PN ---
Date of Service: 02/15/24 Subjective: No further episodes of hematemesis/melena overnight Blood pressure improved Had EGD today ROS: 10 point ROS as noted above, otherwise negative Physical exam GEN: Alert, oriented, NAD HEENT: Normal conjunctiva, sclera anicteric CV: Regular rate and rhythm, no edema Pulm: Nonlabored respirations on room air ABD: Soft, nontender, nondistended MSK: No joint tenderness Integumentary: No rashes, wound to tip of MARIS large toes Neuro: Normal speech, normal affect, decreased sensation in maris feet Vitals reviewed Assessment: Upper GI bleed secondary to large erosive gastric ulcer with bleeding vessel Hypovolemic shock secondary to GI bleed Lactic acidosis likely secondary to hypovolemic shock Alcohol use disorder Hepatic steatosis Urinary retention Plan: Upper GI bleed large erosive gastric ulcer with bleeding vessel Hypovolemic shock secondary to GI bleed Lactic acidosis likely secondary to hypovolemic shock Alcohol use disorder Hepatic steatosis Received total of 2 unit PRBC thus far Continue to monitor in ICU today Repeat lactate pending No evidence of sepsis/septic shock is no source of infection is currently identified Continue empiric antibioticsRocephin Continue Protonix/octreotide drips GI evaluated patient with EGD today, per verbal report had large erosive gastric ulcer with bleeding vessel Cautery was performed of bleeding vessel, continue twice PPI therapy, okay for ice chips today N.p.o. advance to liquids tomorrow monitor H&H closely History of gastric ulcer about 4 years ago managed with medications Admits to drinking socially but relatively frequently-counseled on need for cessation Urinary retention Steven catheter inserted 02/14 plan for voiding tomorrow DVT PPX: SCD Code status: Full Discharge Plan: Home Plan to discharge in: 2 days Time Spent Managing Pts Care (In Minutes): 35
[2024-02-15 11:58] LABS: Specific Gravity 1.016 (1.005-1.030); Sqamous Epithelial <5 /HPF (None Seen); Urine Bacteria <20 /HPF (<20); Urine Bilirubin NEGATIVE (Negative); Urine Blood Negative (Negative); Urine Clarity Extremely Turbid (Clear); Urine Color Yellow (Yellow); Urine Culture Reflex Order NOT NEEDED; Urine Glucose NEGATIVE (Negative); Urine Ketones NEGATIVE (Negative); Urine Microscopic Reflex YN ORDER UMIC; Urine Nitrite NEGATIVE (Negative); Urine Protein NEGATIVE (Negative); Urine RBC <5 /HPF (None Seen); Urine Urobilinogen Normal (Normal); Urine WBC <5 /HPF (<5); Urine pH 5.5 (5.0-7.0)
[2024-02-15 12:56] LABS: Hematocrit 27.6 % (36.0-45.0)
--- NOTE | 2024-02-15 14:04 | CON ---
Reason For Consultation: Upper GI bleed. History Of Presenting Illness: The patient is a 63-year-old woman with history of gastric ulcer with bleeding 4 years ago, osteoarthritis, came to the ER with complaints of persistent nausea, vomiting with bright red vomitus, also black stools. Hemoglobin initially was found to be 7. She was a littl e hypotensive, tachycardic, was given IV fluids, and admitted. GI consultation was requested. Allergies: NO KNOWN DRUG ALLERGIES. Home Medications: As in the chart. She also admits to taking NSAIDs, but states she infrequently ta kes some. Past Medical History: As above. Past Surgical History: Not pertinent to current issue. Social History: Denies any toxic habits. Review of Systems: GI: As in HPI, otherwise negative. Remainder of 10-point review of systems is negative. Physical Examination: Vital Signs: Blood pressure on presentation, 91/50, pulse 99, respiratory rate 20. The patient is a febrile. HEENT: Head atraumatic, normocephalic. Pupils equally reactive. Neck: Supple. Chest: Clear to auscultation bilaterally. Abdomen: Soft, nontender, nondistended. Bowel sounds present. Extremities: No pedal edema. Some bruising seen on the arms. Laboratory Data: Reviewed as mentioned above. Hemoglobin 7. Plan for transfusion. CT of the abdom en essentially negative apart from hepatomegaly. Impression: A 63-year-old woman with history of bleeding gastric ulcer several years ago, now presen ts with what appears clearly to be upper GI bleed. Plan: Continue current management. Keep n.p.o., agree with Protonix drip. We will schedule the pat ient for an upper endoscopy. Risks of the procedure which include, but are not limited to bleeding, infection, perforation, anesthesia complications were discussed. She understands and agrees. US/MODL Voice ID: [id number] Report ID: [id number]
[2024-02-15 16:48] LABS: Hematocrit 25.3 % (36.0-45.0); Hemoglobin 8.4 g/dL (12.0-15.0)
[2024-02-15 21:01] VITALS: O2SAT 96
[2024-02-15 22:15] LABS: Hematocrit 24.1 % (36.0-45.0)
[2024-02-16 05:21] LABS: Absolute Basophils 0.1 K/uL (0-0.5); Absolute Lymphocytes (CBC) 1.5 K/uL (0.7-4.9); Absolute Monocytes 0.5 K/uL (0.1-1.3); Absolute Neutrophil 4.2 K/uL (1.8-8.0); Basophils % 1.4 % (0-1.3); Eosinophils % 0.3 % (0-4.4); Hematocrit 24.2 % (36.0-45.0); Hemoglobin 8.1 g/dL (12.0-15.0); Lymphocytes % 23.9 % (15.3-44.8); MCH 31.1 pg (27.0-35.0); MCHC 33.5 g/dL (32.0-36.0); MCV 92.9 fL (80-100); MPV 8.6 fL (7.6-11.3); Monocytes % 7.7 % (3.3-12.3); Neutrophils % 66.7 % (41.7-73.7); Platelets 195 thou/uL (152-406)
[2024-02-16 05:44] LABS: AST/SGOT 24 U/L (15-37); Albumin 1.9 g/dL (3.4-5.0); Albumin/Globulin Ratio 0.7 (1.1-1.8); Alkaline Phosphatase 94 U/L (45-117); Anion Gap 6.7 mEq/L (5.0-15.0); BUN Blood Urea Nitrogen 15 mg/dL (7-18); Bicarbonate 29 mEq/L (21-32); Bilirubin Total 0.7 mg/dL (0.2-1.0); Globulin 2.6 g/dL (2.3-3.5); Glomerular Filtration Rate 75 ml/min (=/>90); Glucose Level 130 mg/dL (74-106); Potassium 3.7 mEq/L (3.5-5.1); Protein, Total 4.5 g/dL (6.4-8.2); Sodium Level 144 mEq/L (136-145)
[2024-02-16 05:48] LABS: Protime INR 1.17
[2024-02-16 05:53] LABS: ALT/SGPT < 14 U/L (13-56)
[2024-02-16] MEDS: PANTOPRAZOLE 40MG TABLET PO SCH (08:28)
--- NOTE | 2024-02-16 08:57 | P.PN ---
Date of Service: 02/16/24 Subjective: Melena x1 overnight Blood pressure improved No further hematemesis ROS: 10 point ROS as noted above, otherwise negative Physical exam GEN: Alert, oriented, NAD HEENT: Normal conjunctiva, sclera anicteric CV: Regular rate and rhythm, no edema Pulm: Nonlabored respirations on room air ABD: Soft, nontender, nondistended MSK: No joint tenderness Integumentary: No rashes, wound to tip of MARIS large toes Neuro: Normal speech, normal affect, decreased sensation in maris feet Vitals reviewed Assessment: Upper GI bleed secondary to large erosive gastric ulcer with bleeding vessel Hypovolemic shock secondary to GI bleed Lactic acidosis likely secondary to hypovolemic shock Alcohol use disorder Hepatic steatosis Urinary retention Peripheral neuropathy Plan: Upper GI bleed large erosive gastric ulcer with bleeding vessel Hypovolemic shock secondary to GI bleed Lactic acidosis likely secondary to hypovolemic shock Alcohol use disorder Hepatic steatosis Received total of 2 unit PRBC thus far Downgrade to acute care floor HGB stable ~8 No evidence of sepsis/septic shock is no source of infection is currently identified Continue empiric antibioticsRocephin Switch to PO BID PPI today GI evaluated patient with EGD today, per verbal report had large erosive gastric ulcer with bleeding vessel Cautery was performed of bleeding vessel, continue twice PPI therapy Starte full liquids, adv to soft diet for lunch History of gastric ulcer about 4 years ago managed with medications Admits to drinking socially but relatively frequently-counseled on need for cessation Also takes NSAID for OA pains, counselled against Urinary retention Steven catheter inserted 02/14 Will try for DC/voiding trial today Peripheral neuropathy Reports chronic neuropathy involving the lower extremities with difficulty with mobility Continue PT at home, PT eval in hospital DVT PPX: SCD Code status: Full Discharge Plan: Home Plan to discharge in: 2 days Time Spent Managing Pts Care (In Minutes): 35
[2024-02-16] MEDS: KCL 20 MEQ/100 mL IVPB 20 MEQ/100 ML BAG IV SCH (09:28)
[2024-02-17 06:21] LABS: Absolute Basophils 0.1 K/uL (0-0.5); Absolute Eosinophils 0.1 K/uL (0-0.5); Absolute Lymphocytes (CBC) 1.4 K/uL (0.7-4.9); Absolute Monocytes 0.6 K/uL (0.1-1.3); Absolute Neutrophil 4.1 K/uL (1.8-8.0); Basophils % 0.8 % (0-1.3); Eosinophils % 1.3 % (0-4.4); Hematocrit 24.4 % (36.0-45.0); Hemoglobin 8.1 g/dL (12.0-15.0); Lymphocytes % 22.9 % (15.3-44.8); MCH 31.4 pg (27.0-35.0); MCHC 33.2 g/dL (32.0-36.0); MCV 94.4 fL (80-100); MPV 8.3 fL (7.6-11.3); Platelets 180 thou/uL (152-406); RBC Red Blood Cell Count 2.58 M/uL (3.86-4.86); Red Cell Distribution Width 16.7 % (12.1-15.2)
[2024-02-17 06:39] LABS: AST/SGOT 23 U/L (15-37); Albumin 1.9 g/dL (3.4-5.0); Albumin/Globulin Ratio 0.7 (1.1-1.8); Alkaline Phosphatase 89 U/L (45-117); Anion Gap 4.4 mEq/L (5.0-15.0); BUN Blood Urea Nitrogen 8 mg/dL (7-18); Bicarbonate 32 mEq/L (21-32); Bilirubin Total 0.5 mg/dL (0.2-1.0); Globulin 2.9 g/dL (2.3-3.5); Glomerular Filtration Rate 97 ml/min (=/>90); Glucose Level 111 mg/dL (74-106); Potassium 3.4 mEq/L (3.5-5.1); Protein, Total 4.8 g/dL (6.4-8.2); Sodium Level 144 mEq/L (136-145)
[2024-02-17 06:49] LABS: ALT/SGPT < 14 U/L (13-56)
[2024-02-17] MEDS: THIAMINE HCL 100 MG TABLET PO SCH (08:12)
[2024-02-17] MEDS: MULTIVITAMINS,THERAPEUT 1 TAB PO SCH (08:12)
[2024-02-17] MEDS: FOLIC ACID 1 MG TABLET PO SCH (08:13)
[2024-02-17] MEDS: POTASSIUM CL SA 10 MEQ TAB PO ONE (08:14)
[2024-02-17 09:16] VITALS: BP 132/77; TEMP 98.1
[2024-02-17] MEDS ORDERED: MEDIHONEY 44 ML TOPICAL TUBE TOP SCH (10:00)
--- NOTE | 2024-02-17 12:35 | P.DS ---
Admission Date: 02/14/24 Discharge Date: 02/17/24 Disposition: DC HOME/HOME HEALTH CARE Discharge Condition: GOOD Reason for Admission: Upper GI bleed Consultations: GIDr. Scott Procedures: EGD Brief History of Present Illness: 63-year-old female with history of previous bleeding gastric ulcer about 4 years ago, osteoarthritis presents emergency room chief complaint of vomiting bright red blood, melena. She reports since last night she has had 4 episodes of vomiting bright red blood as well as melena at home. She does admit to drinking regularly and NSAID use about once per week given her arthritis pain. Patient had a episode of vomiting bright red blood upon arrival to the emergency department, she was evaluated in the emergency department her labs are significant for initial hemoglobin of 7.0 hematocrit 22.0 white blood cell count 13.9 INR is 1.51 creatinine 1.45 GFR 40 glucose 185 lactic acid 6.4 T. bili 1.3 AST 38 ALT [address] abdomen pelvis with IV contrast was performed which showed progressive hepatomegaly and diffuse parenchymal hypoattenuation of the liver, mild bladder wall thickening which could relate to degree of underdistention versus sequela of cystitis. Patient with blood pressure in the 80s to 90 systolic and heart rate around 110, she has been ordered to units of blood cells and started on octreotide, Protonix, Rocephin. GI was consulted while patient was in the emergency department and agrees to consult, patient be admitted to the ICU for further management of upper GI bleed. Hospital Course: Assessment: Upper GI bleed secondary to large erosive gastric ulcer with bleeding vessel Hypovolemic shock secondary to GI bleed Lactic acidosis likely secondary to hypovolemic shock Alcohol use disorder Hepatic steatosis Urinary retention Peripheral neuropathy Patient was admitted to the hospital for upper GI bleed with hematemesis, melena. She required 2 unit packed blood cell blood transfusion and underwent EGD. On EGD she was noted to have a large gastric ulcer with a bleeding vessel, the vessel was able to be cauterized and bleeding was controlled. Patient was maintained on twice daily PPI and has been tolerating a soft diet, hemoglobin remained stable at this time. Discussed cessation of all NSAIDs and alcohol as these may have contributed to the development of a gastric ulcer. Prescription sent to pharmacy for 2 months of twice daily PPI, recommend follow- up with GI in 2 to 3 weeks. Please also establish yourself with a primary care doctor in the area. For the wounds to your great toes on each foot we recommend applying Medihoney once daily, also bring these up when establish yourself with a primary care doctor. Great Toe wound- Cleanse with vashe. Apply Medihoeny, gauze, 1" coban daily and PRN Please call Soraya Hernández [employer] Clerk, at [phone] with the name of your home health company. This is required to resume your services after discharging home. Thank you! Vital Signs/Physical Exam: Temp Pulse Resp BP Pulse Ox 98.1 F 77 16 132/77 94 02/17/24 08:00 02/17/24 08:00 02/17/24 08:00 02/17/24 08:00 02/17/24 08:00 General: Alert, In no apparent distress, Oriented x3 HEENT: Atraumatic, PERRLA, EOMI Neck: Supple, JVD not distended Respiratory: Clear to auscultation bilaterally, Normal air movement Cardiovascular: Regular rate/rhythm, Normal S1 S2 Gastrointestinal: Normal bowel sounds, No tenderness Musculoskeletal: No tenderness Integumentary: Other (Ulcerations present to distal great toes bilaterally) Neurological: Normal speech, Normal tone, Normal affect Laboratory Data at Discharge: WBC 6.30 thou/uL (4.3-10.9) 02/17/24 06:01 Hgb 8.1 g/dL (12.0-15.0) L 02/17/24 06:01 Hct 24.4 % (36.0-45.0) L 02/17/24 06:01 Plt Count 180 thou/uL (152-406) 02/17/24 06:01 PT 13.0 SECONDS (9.4-12.5) H 02/16/24 05:02 INR 1.17 02/16/24 05:02 APTT 29.9 SECONDS (24.3-36.9) 02/14/24 12:34 Sodium 144 mEq/L (136-145) 02/17/24 06:01 Potassium Cancelled 02/17/24 15:00 BUN 8 mg/dL (7-18) 02/17/24 06:01 Creatinine 0.67 mg/dL (0.55-1.02) 02/17/24 06:01 Glucose 111 mg/dL (74-106) H 02/17/24 06:01 Phosphorus 3.5 mg/dL (2.5-4.9) 02/15/24 04:45 Magnesium 1.3 mg/dL (1.6-2.4) L 02/15/24 04:45 Total Bilirubin 0.5 mg/dL (0.2-1.0) 02/17/24 06:01 AST 23 U/L (15-37) 02/17/24 06:01 ALT < 14 U/L (13-56) 02/17/24 06:01 Alkaline Phosphatase 89 U/L (45-117) 02/17/24 06:01 Lipase 12 U/L (13-75) L 02/14/24 12:34 Home Medications: Pantoprazole [Protonix Tab] 40 mg PO BID #60 tab 02/17/24 New Medications: Pantoprazole [Protonix Tab] 40 mg PO BID #60 tab Physician Discharge Instructions: Patient was admitted to the hospital for upper GI bleed with hematemesis, melena. She required 2 unit packed blood cell blood transfusion and underwent EGD. On EGD she was noted to have a large gastric ulcer with a bleeding vessel, the vessel was able to be cauterized and bleeding was controlled. Patient was maintained on twice daily PPI and has been tolerating a soft diet, hemoglobin remained stable at this time. Discussed cessation of all NSAIDs and alcohol as these may have contributed to the development of a gastric ulcer. Prescription sent to pharmacy for 2 months of twice daily PPI, recommend follow- up with GI in 2 to 3 weeks. Please also establish yourself with a primary care doctor in the area. For the wounds to your great toes on each foot we recommend applying Medihoney once daily, also bring these up when establish yourself with a primary care doctor. Great Toe wound- Cleanse with vashe. Apply Medihoeny, gauze, 1" coban daily and PRN Please call Soraya Hernández [employer] Clerk, at [phone] with the name of your home health company. This is required to resume your services after discharging home. Thank you! Diet: soft Activity: Fall precautions Followup: NONE,NONE [Primary Care Provider] - 1-2 Weeks Solitario Moss MD [OUTSIDE PHYSICIAN] - 1-2 Weeks Time spent managing pt's care (in minutes): 35
--- NOTE | 2024-02-18 13:40 | EKG ---
Test Date: 2024-02-14 Test Time: 11:32:49 Program Architect: JOSH MEASUREMENT RESULTS: Intervals: Rate: 117 DC: 138 QRSD: 74 QT: 356 QTc: 496 [place]: P: 64 DC: 138 QRS: 17 T: 33 INTERPRETIVE STATEMENTS: Sinus tachycardia Low voltage QRS Borderline ECG Compared to ECG 11/27/2023 15:12:23 Low QRS voltage now present Sinus rhythm no longer present ST (T wave) deviation no longer present Prolonged QT interval no longer present Electronically Signed On 02-18-24 13:32:56 CDT by Harsha Palencia
== END 2024-02-17 10:28 | disposition home health service (06) | DRG 377 ==
LOC: ER 11:21 → ERHOLD 14:21 → 3RD-ICU 17:10 → ERHOLD 17:17 → 3RD-ICU 17:31 → 2ND 02-16 14:17
PROVIDERS: ADMIT Internal Medicine; ATTEND Hospitalist
PROC: 30233N1 Transfusion of Nonautologous Red Blood Cells into Peripheral Vein, Percutaneous Approach (ICD-10-PCS; 2024-02-14)
PROC: 0DB68ZX Excision of Stomach, Via Natural or Artificial Opening Endoscopic, Diagnostic (ICD-10-PCS; 2024-02-14)
PROC: 30233K1 Transfusion of Nonautologous Frozen Plasma into Peripheral Vein, Percutaneous Approach (ICD-10-PCS; 2024-02-15)
PROC: 0T9B70Z Drainage of Bladder with Drainage Device, Via Natural or Artificial Opening (ICD-10-PCS; principal; 2024-02-15 09:30)
DX: K25.0 Acute gastric ulcer with hemorrhage (principal); R57.1 Hypovolemic shock; D62 Acute posthemorrhagic anemia; E87.20 Acidosis, unspecified; K44.9 Diaphragmatic hernia without obstruction or gangrene; M19.90 Unspecified osteoarthritis, unspecified site; F10.10 Alcohol abuse, uncomplicated; K76.0 Fatty (change of) liver, not elsewhere classified; G62.9 Polyneuropathy, unspecified; K29.80 Duodenitis without bleeding; K25.3 Acute gastric ulcer without hemorrhage or perforation; R33.9 Retention of urine, unspecified; Z79.899 Other long term (current) drug therapy
CPT/HCPCS: 36415; 36430; 71045; 74176; 80053; 81001; 83605; 83690; 83735; 84100; 84132; 85014; 85018; 85025; 85610; 85730; 86850; 86900; 86901; 86920; 86927; 87040; 88305; 88312; 93005; 97110; 97161; 97530; 99285; J0171; J0696; J2001; J2354; J2405; J2470; J2704; J3411; J3475; J3480; J7030; J7040; J7050; J7060; P9016; P9017; P9059; Q0164

== ENCOUNTER 2024-03-25 04:34 | Emergency (ER) | payer BC ==
[2024-03-25] MEDS ORDERED: PANTOPRAZOLE 40 MG INJ ONE (04:41)
[2024-03-25] MEDS ORDERED: NA CHLORIDE 0.9% 250 ML ONE (04:41)
[2024-03-25] MEDS ORDERED: NA CHLORIDE 0.9% 500 ML ONE ×2 (04:57→05:24)
[2024-03-25 05:12] LABS: Absolute Basophils 0.2 K/uL (0-0.5); Absolute Eosinophils 0.1 K/uL (0-0.5); Absolute Lymphocytes (CBC) 3.3 K/uL (0.7-4.9); Absolute Monocytes 1.7 K/uL (0.1-1.3); Absolute Neutrophil 17.6 K/uL (1.8-8.0); Basophils % 0.7 % (0-1.3); Eosinophils % 0.4 % (0-4.4); Hematocrit 22.7 % (36.0-45.0); Hemoglobin 7.2 g/dL (12.0-15.0); Lymphocytes % 14.4 % (15.3-44.8); MCH 29.8 pg (27.0-35.0); MCHC 31.9 g/dL (32.0-36.0); MCV 93.5 fL (80-100); MPV 10.1 fL (7.6-11.3); Monocytes % 7.4 % (3.3-12.3); Neutrophils % 77.1 % (41.7-73.7); Platelets 478 thou/uL (152-406); RBC Red Blood Cell Count 2.43 M/uL (3.86-4.86); Red Cell Distribution Width 15.6 % (12.1-15.2)
[2024-03-25 05:15] LABS: PT Prothrombin Time 14.4 SECONDS (9.4-12.5); Protime INR 1.3
[2024-03-25] MEDS ORDERED: CEFTRIAXONE 1000 MG/VIAL ONE (05:23)
[2024-03-25] MEDS ORDERED: ALBUMIN HUMAN 25% 100 ML IV ONE (05:24)
[2024-03-25] MEDS ORDERED: OCTREOTIDE ACETATE 500 MCG/ML ONE (05:24)
[2024-03-25] MEDS ORDERED: NA CHLORIDE 0.9% 1,000 ML ONE (05:24)
[2024-03-25] MEDS ORDERED: CALCIUM GLUCONATE 1 GM IVPB 2 GM/100 ML BAG IV ONE (05:25)
[2024-03-25 05:27] LABS: Albumin 2.3 g/dL (3.4-5.0); Albumin/Globulin Ratio 0.6 (1.1-1.8); Anion Gap 13.4 mEq/L (5.0-15.0); Bilirubin Total 0.3 mg/dL (0.2-1.0); Globulin 3.7 g/dL (2.3-3.5); Potassium 4.4 mEq/L (3.5-5.1)
[2024-03-25] MEDS ORDERED: NACHLORIDE 0.45% 1,000 ML IV ONE (05:49)
--- NOTE | 2024-03-25 06:06 | ER ---
Nurse's Notes [facility] Name: Charlie Fisher Age: 63 yrs Sex: Female : 1960 Arrival Date: 03/25/2024 Time: 04:34 Bed 3 Private MD: Diagnosis: GI Bleed/ Gastrointestinal hemorrhage, unspecified;Upper GI bleed with hematemesis, symptomatic anemia, hemorrhagic shock Presentation: 03/25 04:52 Chief complaint: EMS states: toned out for vomiting bright red blood , hx of gastric iw ulcer. Coronavirus screen: At this time, the client does not indicate any symptoms associated with coronavirus-19. Ebola Screen: No symptoms or risks identified at this time. Initial Sepsis Screen: Does the patient meet any 2 criteria? No. Patient's initial sepsis screen is negative. Does the patient have a suspected source of infection? No. Patient's initial sepsis screen is negative. Risk Assessment: Do you want to hurt yourself or someone else? Patient reports no desire to harm self or others. Onset of symptoms was March 25, 2024. 04:52 Method Of Arrival: EMS: [facility] iw 04:52 Acuity: GALA 2 iw 05:32 Care prior to arrival: Medication(s) given: zofran 8 mg, IV initiated. 20 GA, in the iw left antecubital area. Activity prior to arrival: vomiting. Transition of care: patient was not received from another setting of care. Triage Assessment: 04:52 General: Appears uncomfortable, ill, Behavior is calm, cooperative. Pain: Denies pain. iw Neuro: Level of Consciousness is awake, alert, obeys commands, Oriented to person, place, time, situation, Moves all extremities. 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 - Social history:: The patient is unemployed, Smoking status: Patient denies any tobacco usage or history of. - Infectious Disease History:: Denies. - Family history:: not pertinent. Screenin:50 [facility] ED Fall Risk Assessment (Adult) History of falling in the last 3 months, cp4 including since admission No falls in past 3 months (0 pts) Confusion or Disorientation No (0 pts) Intoxicated or Sedated No (0 pts) Impaired Gait No (0 pts) Mobility Assist Device Used No (0 pt) Altered Elimination No (0 pt) Score/Fall Risk Level 0 - 2 = Low Risk Oriented to surroundings, Maintained a safe environment, Assessed \\T\\ reinforced patient's understanding of fall precautions, Hourly rounding (assess needs \\T\\ fall precautionary measures) done. Abuse screen: Denies threats or abuse. Nutritional screening: No deficits noted. Tuberculosis screening: No symptoms or risk factors identified. Assessment: 04:50 General: Appears distressed, uncomfortable, Behavior is calm, cooperative, appropriate cp4 for age. 04:50 Pain: Denies pain. Neuro: Level of Consciousness is awake, alert, obeys commands, cp4 Oriented to person, place, time, situation. Cardiovascular: Patient's skin is warm and dry. Rhythm is sinus rhythm. Respiratory: Airway is patent Respiratory effort is even, unlabored. GI: Reports nausea, vomiting. : No signs and/or symptoms were reported regarding the genitourinary system. EENT: No signs and/or symptoms were reported regarding the EENT system. Derm: No signs and/or symptoms reported regarding the dermatologic system. Derm: No signs and/or symptoms reported regarding the dermatologic system. Musculoskeletal: No signs and/or symptoms reported regarding the musculoskeletal system. 05:00 Reassessment: 1st unit uncrossed blood started at 0500, verified with Rachel Oneil RN. iw 05:00 Reassessment: See Blood Transfusion Record for vital signs. cp4 05:19 Reassessment: Dr. Burk at bedside for central line placement. iw 05:47 Reassessment: Initiated transfer to [facility] as we do not have GI services call center professional ss at this facility. Requesting ICU bed. Spoke with Stacey, check and transfer beader who states she will do a bed check and call back momentarily. 07:05 General: Appears comfortable, Behavior is calm, cooperative. Pain: Denies pain. Neuro: aa5 Level of Consciousness is awake, alert, obeys commands, Oriented to person, place, time, situation. Cardiovascular: Heart tones S1 S2 present Rhythm is sinus rhythm. Respiratory: Airway is patent Respiratory effort is even, unlabored, relaxed, Respiratory pattern is regular, symmetrical, Breath sounds are clear bilaterally. GI: Abdomen is non-distended, Abd is soft and non tender X 4 quads. Patient currently denies nausea. : No signs and/or symptoms were reported regarding the genitourinary system. EENT: Poor dentition noted . Derm: Skin is pink, warm \\T\\ dry. Wound/ulcer noted to left great toe, approximately quater-sized, no drainage noted, pt states "I have neuropathy and it's been there a very long time". Wound noted to right great toe that is black in color, measuring approximately 2-3 mm in diameter. Musculoskeletal: Range of motion: intact in all extremities. 07:20 Reassessment: RBC unit # 3 started at 50mls/hr at 0705, currently infusing at 250mls aa5 hr, no adverse reactions noted or reported, pt tolerating well. See transfusion record for more information and complete VS. . 09:45 Reassessment: RBC unit # 4 started at 50mls/hr at 0930, currently infusing at aa5 150mls/hr, no adverse reactions noted or reported, pt tolerating well. See transfusion record for more information and complete VS. . 09:45 Reassessment: Patient is alert, oriented x 3, equal unlabored respirations, skin aa5 warm/dry/pink. 09:59 Reassessment: Awaiting EMS for transfer. aa5 10:35 Reassessment: pt. transfer of care to EMS; blood transfusion checked and verified ar6 with Taj Hernández with EMS; V/S WNL; pt. A\\T\\Ox4; copies provided for blood transfusion; bed locked \\T\\ lowered; transferred to EMS stretcher. 10:49 Reassessment: contacted HAIM Ross to provide update per request of HAIM Balbuena when ar6 transferred; report provided; plan plan of care ongoing. Vital Signs: 04:52 BP 64 / 47; Pulse 108; Resp 14; Temp 98.1; Pulse Ox 100% on R/A; Pain 0/10; iw 04:53 BP 74 / 50; Pulse 105; Resp 14; Pulse Ox 100% on R/A; iw 05:24 BP 109 / 62; Pulse 106; Resp 14; Pulse Ox 100% on R/A; iw 05:34 BP 106 / 61; Pulse 104; Resp 14; Pulse Ox 100% on R/A; iw 07:10 BP 132 / 79; Pulse 93; Resp 14 S; Temp 97.1(TE); Pulse Ox 100% on 2 lpm NC; aa5 07:35 BP 126 / 82; Pulse 104; Resp 14 S; Temp 97(TE); Pulse Ox 100% on 2 lpm NC; aa5 10:00 BP 94 / 60; Pulse 89; Resp 16; Temp 97.3; Pulse Ox 100% on 2 lpm NC; ar6 10:30 BP 102 / 66; Pulse 89; Resp 18; Temp 97.3; Pulse Ox 100% on 2 lpm NC; ar6 04:52 Pain Scale: Adult iw ED Course: 04:35 Patient arrived in ED. jj6 04:41 Godwin Burk MD is Attending Physician. sp4 04:50 Placed in gown. Bed in low position. Call light in reach. Side rails up X2. cp4 04:51 Inserted saline lock: 20 gauge in right wrist, using aseptic technique. Flushed with 10 iw mL NS. 04:51 Initial lab(s) drawn, by me, sent to lab. T\\T\\S collected, blood band applied to patient. iw Maintain EMS IV. Dressing intact. Good blood return noted. Site clean \\T\\ dry. Gauge \\T\\ site: 20 LAC. Flushed with 10 mL NS. 04:53 Triage completed. iw 04:55 Consent for blood and/or blood product transfusion explained by staff, explained by iw physician, signed by patient. 05:20 Rachel Hendrix is Primary Nurse. cp4 05:47 TC contacted to initiate patient transfer, spoke with Stacey. ty 05:52 Assisted provider with central line placement. Set up central line tray. Triple lumen cp4 line placed in right internal jugular. Line placed by Godwin Burk MD Placement verified by CXR, blood return, Dressed with Tegaderm, Patient tolerated well. Before procedure, did Practitioner(s) obtain informed consent? No. Patient \\T\\ family education about procedure, CLABSI prevention and S/S of infection? Yes. Time-out/Briefing performed prior to start of procedure? Yes. Was handwashing/sanitizing done immediately prior to procedure? Yes. Was patient positioned to in a way to prevent air embolism? Yes. Was procedure site sterilized?. 06:00 [facility] called for Qxy4Sig with Dr. Sidhu. ty 06:[address] Burk delay trsnsport until 3rd unit of PRBC is given. ty 06:41 Chest Single View XRAY In Process Unspecified. EDMS 07:35 Steven cath inserted, using sterile technique, 12 Fr., by me, balloon inflated, to aa5 gravity drainage, returned clear yellow urine. Patient tolerated poorly. 09:58 Report given to HAIM Garcia. aa5 10:00 Provided Education on: Blood Transfusion. Client placed on continuous cardiac and pulse ar6 oximetry monitoring. NIBP monitoring applied. Door closed. Noise minimized. Lights dimmed. Warm blanket given. Administered Medications: 04:54 Drug: Pantoprazole IVP 80 mg IVP once Route: IVP; Site: right wrist; iw 05:00 Follow up: Response: No adverse reaction cp4 10:28 Follow up: Response: No adverse reaction ar6 04:54 Drug: Pantoprazole IV 8 mg/hr IV at 25 ml/hr continuous; (Standard dilution is 80 mg in iw 250 mL NS) Route: IV; Rate: 25 ml/hr; Site: right wrist; 07:05 Follow up: Response: No adverse reaction; Currently infusing aa5 10:28 Follow up: Response: No adverse reaction; IV Status: Completed infusion; IV Intake: ar6 250ml 05:35 Not Given (Physician Discretion): mupirocinointment 2 % 1 application Topical once cp4 05:52 Drug: Octreotide Infusion (50 mcg/hr) - (Octreotide IV 500 mcg, NS 0.9% IV 500 ml) IV cp4 at 50 ml/hr continuous Route: IV; Rate: 50 ml/hr; Site: right jugular; 07:05 Follow up: IV Status: Currently infusing aa5 10:28 Follow up: Response: No adverse reaction; IV Status: Completed infusion; IV Intake: ar6 500ml 05:52 Drug: Rocephin - Rocephin (cefTRIAXone) IVPB 1 grams IVPB once over 30 mins; (mix in 50 cp4 mL NS) Route: IVPB; Infused Over: 30 mins; Site: right jugular; 05:53 Follow up: IV Status: Completed infusion cp4 10:29 Follow up: Response: No adverse reaction; IV Status: Completed infusion; IV Intake: [id number] 05:52 Drug: NS IV 0.45 % 1000 ml IV at 125 ml/hr continuous Route: IV; Rate: 125 ml/hr; Site: cp4 right antecubital; 10:29 Follow up: Response: No adverse reaction; IV Status: Completed infusion; IV Intake: ar6 1000ml 05:52 Drug: Albumin IVPB 25 grams 100 ml IVPB once; (Note: Albumin 25% concentration) Volume: cp4 100 ml; Route: IVPB; Site: right jugular; 06:52 Follow up: IV Status: Infusion continued cp4 06:52 Follow up: IV Status: Completed infusion cp4 10:29 Follow up: Response: No adverse reaction; IV Status: Completed infusion; IV Intake: ar6 100ml 05:52 Drug: Calcium Gluconate IVPB 2 grams IVPB once over 60 mins; (mix in NS 100 mL) Route: cp4 IVPB; Infused Over: 60 mins; Site: right jugular; 06:52 Follow up: IV Status: Completed infusion; IV Intake: 100ml cp4 10:30 Follow up: Response: No adverse reaction; IV Status: Completed infusion; IV Intake: ar6 100ml 07:15 Drug: Furosemide IVP 20 mg IVP once; give over 2 minutes Route: IVP; Site: right aa5 antecubital; 07:35 Follow up: Response: No adverse reaction aa5 10:30 Follow up: Response: No adverse reaction ar6 10:11 Drug: Furosemide IVP 20 mg IVP once; give over 2 minutes Route: IVP; Site: right ph antecubital; 10:47 Follow up: Response: No adverse reaction ar6 Medication: 04:50 VIS not applicable for this client. cp4 Intake: 06:52 IV: 100ml; Total: 100ml. cp4 10:28 IV: 250ml; Total: 350ml. ar6 10:28 IV: 500ml; Total: 850ml. ar6 10:29 IV: 50ml; Total: 900ml. ar6 10:29 IV: 1000ml; Total: 1900ml. ar6 10:29 IV: 100ml; Total: 2000ml. ar6 10:30 IV: 100ml; Total: 2100ml. ar6 Outcome: 06:05 ER care complete, transfer ordered by sp4 10:53 Patient left the ED. ar6 Signatures: Dispatcher [employer] EDAlcira Lopez RN RN iw Stephany Daigle RN RN aa5 Carey Waldron RN RN Ashley Concepcion RN RN Tonya Mcbride6 Cta Funez RN RN vc1 Godwin Burk MD MD sp4 Rachel Hendrix 4 Regulo Maldonado Amber, RN RN ar6 Corrections: (The following items were deleted from the chart) 05:24 05:23 BP 109 / 62; Pulse 106bpm; Resp 14bpm; Pulse Ox 100% RA; vc1 iw 05:24 04:55 Consent for blood and/or blood product transfusion explained by staff, explained iw by physician, signed by patient, vc1 06:17 06:16 Calcium Gluconate IVPB 2 grams IVPB in right jugular over 60 mins cp4 cp4 08:03 07:05 Currently infusing aa5 aa5 10:44 10:30 BP 94 / 60; Pulse 89bpm; Resp 16bpm; Pulse Ox 100%; Temp 97.3F; ar6 ar6 10:45 10:00 BP 94 / 60; Pulse 89bpm; Resp 16bpm; Pulse Ox 100%; Temp 97.3F; ar6 ar6
--- NOTE | 2024-03-25 06:06 | EDPHYS ---
Physician Documentation [facility] Name: Charlie Fisher Age: 63 yrs Sex: Female : 1960 Arrival Date: 03/25/2024 Time: 04:34 Bed 3 Private MD: ED Physician Godwin Burk HPI: 03/25 05:43 This 63 yrs old Female presents to ER via EMS with complaints of Vomiting sp4 blood. 05:49 63-year-old female with history of peptic ulcer disease with prior upper GI bleed sp4 presents with acute hematemesis, at home starting acutely last night. Reported hematemesis x 2. EMS arrived found patient hypotensive started IV fluids and gave her 8 mg IV Zofran.. . 05:59 Last admission for upper GI bleed 02/14/2024. Patient was admitted for upper GI bleed sp4 large erosive gastric ulcer with bleeding, hypovolemic shock, lactic acidosis, alcohol use disorder, hepatic steatosis, urinary retention. . 06:00 Patient is EGD was noted to have a large gastric ulcer with bleeding vessel the vessel sp4 was cauterized and bleeding was controlled. Patient was given twice daily PPI and then was discharged home. Date of discharge 02/17/2024.. 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 - Social history:: The patient is unemployed, Smoking status: Patient denies any tobacco usage or history of. - Infectious Disease History:: Denies. - Family history:: not pertinent. ROS: 05:49 Constitutional: Negative for fever, chills, and weight loss, generalized weakness, sp4 positive hypertension, positive GI bleed, positive hematemesis 05:49 All other systems are negative, Exam: 05:49 Constitutional: This is a well developed, pale appearing female, toxic appearing , sp4 hypotensive on arrival tachycardic, Head/Face: Normocephalic, atraumatic. Eyes: Pupils equal round and reactive to light, extra-ocular motions intact. Lids and lashes normal. Conjunctiva and sclera are not injected. Cornea within normal limits. Periorbital areas with no swelling, redness, or edema. ENT: Nares patent. No nasal discharge, no septal abnormalities noted. Tympanic membranes are normal and external auditory canals are clear. Oropharynx with no redness, swelling, or masses, exudates, or evidence of obstruction, uvula midline. Mucous membranes moist. Neck: Trachea midline, no thyromegaly or masses palpated, and no cervical lymphadenopathy. Supple, full range of motion without nuchal rigidity, or vertebral point tenderness. Chest/axilla: Normal chest wall appearance and motion. Nontender with no deformity. No lesions are appreciated. Cardiovascular: Regular rate and rhythm with a normal S1 and S2. No gallops, murmurs, or rubs. Normal PMI, no JVD. No pulse deficits. Respiratory: Lungs have equal breath sounds bilaterally, clear to auscultation and percussion. No rales, rhonchi or wheezes noted. No increased work of breathing, no retractions or nasal flaring. Abdomen/GI: Soft, with normal bowel sounds. No distension or tympany. No guarding or rebound. No evidence of tenderness throughout. Back: No spinal tenderness. No costovertebral tenderness. Female : Normal external genitalia. Rectal exam reveals no blood or melena Skin: Warm, dry with normal turgor. Normal color with no rashes, no lesions, and no evidence of cellulitis. MS/ Extremity: Pulses equal, no cyanosis. Neurovascular intact. Full, normal range of motion. Neuro: Awake and alert, GCS 15, oriented to person, place, time, and situation. Cranial nerves II-XII grossly intact. Motor strength 5/5 in all extremities. Sensory grossly intact. Psych: Awake, alert, with orientation to person, place and time. Behavior, mood, and affect are within normal limits 05:49 ECG was reviewed by the Attending Physician. EKG at 0 458 EKG reveals sinus tachycardia rate 103 Vital Signs: 04:52 BP 64 / 47; Pulse 108; Resp 14; Temp 98.1; Pulse Ox 100% on R/A; Pain 0/10; iw 04:53 BP 74 / 50; Pulse 105; Resp 14; Pulse Ox 100% on R/A; iw 05:24 BP 109 / 62; Pulse 106; Resp 14; Pulse Ox 100% on R/A; iw 05:34 BP 106 / 61; Pulse 104; Resp 14; Pulse Ox 100% on R/A; iw 07:10 BP 132 / 79; Pulse 93; Resp 14 S; Temp 97.1(TE); Pulse Ox 100% on 2 lpm NC; aa5 07:35 BP 126 / 82; Pulse 104; Resp 14 S; Temp 97(TE); Pulse Ox 100% on 2 lpm NC; aa5 10:00 BP 94 / 60; Pulse 89; Resp 16; Temp 97.3; Pulse Ox 100% on 2 lpm NC; ar6 10:30 BP 102 / 66; Pulse 89; Resp 18; Temp 97.3; Pulse Ox 100% on 2 lpm NC; ar6 04:52 Pain Scale: Adult iw Procedures: 05:49 Central Line: the site was prepped with Betadine, in sterile fashion, a triple lumen sp4 catheter was inserted, in the right internal jugular vein, in 1 attempts. placement was verified, by CXR, by blood return, Ultrasound-guided central line, the site was dressed with 4X4s, Tegaderm, using sterile technique, the patient tolerated the procedure, well, Ultrasound-guided central line placed for acute hypotension associated with GI bleed. MDM: 04:45 Patient medically screened. sp4 05:55 Differential diagnosis: gastritis, diverticulitis, hemorrhoids, hemorrhagic shock, sp4 varices. Data reviewed: vital signs, nurses notes, radiologic studies, plain films. Consideration of Admission/Observation Escalation of care including admission/observation considered. Management of patient was discussed with the following: Applications Architect: GI and Hospitalist . 06:04 ED course: Patient was discussed with court clerk at [facility] and sp4 accepted for transfer.. 03/25 04:41 Order name: CBC with Diff; Complete Time: 16:18 sp4 03/25 04:41 Order name: CMP; Complete Time: 05:44 sp4 03/25 04:41 Order name: Lipase; Complete Time: 05:44 sp4 03/25 04:42 Order name: PT-INR; Complete Time: 05:44 sp4 03/25 04:43 Order name: CRP; Complete Time: 05:58 sp4 03/25 04:46 Order name: ABO/RH typing EDTX 03/25 04:46 Order name: Antibody Screen EDTX 03/25 04:46 Order name: Packed RBC Leukored EDTX 03/25 04:46 Order name: RBC Leukoreduced (Pheresis 2) EDMS 03/25 09:21 Order name: Manual Differential; Complete Time: 16:18 EDTX 03/25 05:44 Order name: Chest Single View XRAY; Complete Time: 16:18 sp4 03/25 04:43 Order name: EKG; Complete Time: 04:43 sp4 03/25 04:41 Order name: IV Saline Lock; Complete Time: 05:35 sp4 03/25 04:41 Order name: Labs collected and sent; Complete Time: 05:35 sp4 03/25 04:43 Order name: EKG - Nurse/Tech; Complete Time: 05:35 sp4 03/25 04:43 Order name: Central Line Dressing Kit; Complete Time: 05:35 sp4 03/25 04:43 Order name: Central Line Kit; Complete Time: 05:35 sp4 03/25 04:43 Order name: Chlorhexidine prep; Complete Time: 05:35 sp4 03/25 04:43 Order name: Consent for central line completed; Complete Time: 05:35 sp4 03/25 04:43 Order name: Line Caps x3; Complete Time: 05:35 sp4 03/25 04:43 Order name: NS Flushes x3; Complete Time: 05:35 sp4 03/25 04:43 Order name: Sterile Gloves; Complete Time: 05:35 sp4 03/25 04:43 Order name: Sterile Probe Cover; Complete Time: 05:35 sp4 03/25 07:53 Order name: Steven: VO received at 0730; Complete Time: 07:53 aa5 EC:49 Rate is 103 beats/min. Rhythm is regular, Sinus tachycardia. QRS [place] is Normal. [place] sp4 interval is normal. QRS interval is normal. QT interval is normal. No Q waves. T waves are Normal. No ST changes noted. Clinical impression: No evidence of ischemia. Interpreted by me. Reviewed by me. Administered Medications: 04:54 Drug: Pantoprazole IVP 80 mg IVP once Route: IVP; Site: right wrist; iw 05:00 Follow up: Response: No adverse reaction cp4 10:28 Follow up: Response: No adverse reaction ar6 04:54 Drug: Pantoprazole IV 8 mg/hr IV at 25 ml/hr continuous; (Standard dilution is 80 mg in iw 250 mL NS) Route: IV; Rate: 25 ml/hr; Site: right wrist; 07:05 Follow up: Response: No adverse reaction; Currently infusing aa5 10:28 Follow up: Response: No adverse reaction; IV Status: Completed infusion; IV Intake: ar6 250ml 05:35 Not Given (Physician Discretion): mupirocinointment 2 % 1 application Topical once cp4 05:52 Drug: Octreotide Infusion (50 mcg/hr) - (Octreotide IV 500 mcg, NS 0.9% IV 500 ml) IV cp4 at 50 ml/hr continuous Route: IV; Rate: 50 ml/hr; Site: right jugular; 07:05 Follow up: IV Status: Currently infusing aa5 10:28 Follow up: Response: No adverse reaction; IV Status: Completed infusion; IV Intake: ar6 500ml 05:52 Drug: Rocephin - Rocephin (cefTRIAXone) IVPB 1 grams IVPB once over 30 mins; (mix in 50 cp4 mL NS) Route: IVPB; Infused Over: 30 mins; Site: right jugular; 05:53 Follow up: IV Status: Completed infusion cp4 10:29 Follow up: Response: No adverse reaction; IV Status: Completed infusion; IV Intake: [id number] 05:52 Drug: NS IV 0.45 % 1000 ml IV at 125 ml/hr continuous Route: IV; Rate: 125 ml/hr; Site: cp4 right antecubital; 10:29 Follow up: Response: No adverse reaction; IV Status: Completed infusion; IV Intake: ar6 1000ml 05:52 Drug: Albumin IVPB 25 grams 100 ml IVPB once; (Note: Albumin 25% concentration) Volume: cp4 100 ml; Route: IVPB; Site: right jugular; 06:52 Follow up: IV Status: Infusion continued cp4 06:52 Follow up: IV Status: Completed infusion cp4 10:29 Follow up: Response: No adverse reaction; IV Status: Completed infusion; IV Intake: ar6 100ml 05:52 Drug: Calcium Gluconate IVPB 2 grams IVPB once over 60 mins; (mix in NS 100 mL) Route: cp4 IVPB; Infused Over: 60 mins; Site: right jugular; 06:52 Follow up: IV Status: Completed infusion; IV Intake: 100ml cp4 10:30 Follow up: Response: No adverse reaction; IV Status: Completed infusion; IV Intake: ar6 100ml 07:15 Drug: Furosemide IVP 20 mg IVP once; give over 2 minutes Route: IVP; Site: right aa5 antecubital; 07:35 Follow up: Response: No adverse reaction aa5 10:30 Follow up: Response: No adverse reaction ar6 10:11 Drug: Furosemide IVP 20 mg IVP once; give over 2 minutes Route: IVP; Site: right ph antecubital; 10:47 Follow up: Response: No adverse reaction ar6 Disposition Summary: 03/25/24 06:05 Transfer Ordered Notes: Transfer Location: [facility] sp4 Reason: Higher level of care sp4 Condition: Stable sp4 Problem: new sp4 Symptoms: have improved sp4 Accepting Physician: Micah Dodson's court clerk(03/25/24 10:53) ar6 Diagnosis - GI Bleed/ Gastrointestinal hemorrhage, unspecified sp4 - Upper GI bleed with hematemesis, symptomatic anemia, hemorrhagic shock sp4 Forms: - Medication Reconciliation Form sp4 - SBAR form sp4 Critical care time excluding procedures: 05:53 Critical care time: Bedside Care: 36 minutes, Consultation: 12 minutes, Family sp4 Intervention: 12 minutes. Total time: 60 minutes Signatures: Dispatcher [employer] Alcira Olsen RN Stephany Valle RN RN aa5 Ashley Concepcion RN RN ph Potepalov, Sergey, MD MD sp4 Potter, Christina 4 Radha Martinez RN RN ar6 Corrections: (The following items were deleted from the chart) 06:12 04:42 TYPE AND SCREEN+BB.LAB.BRZ ordered. EDMS EDMS 06:12 05:48 PACKED RBC LEUKORED+BB.LAB.BRZ ordered. EDMS EDMS 06:12 05:50 ABO/RH typing ordered. EDMS EDMS 06:12 05:50 Antibody Screen ordered. EDMS EDMS 06:13 04:42 PACKED RBC LEUKORED+BB.LAB.BRZ ordered. EDMS EDMS 06:13 04:46 ABO/RH typing ordered. EDMS EDMS 06:13 04:46 Antibody Screen ordered. EDMS EDMS 10:53 06:[address] [facility] [address] clerk sp4 ar6
[2024-03-25] MEDS ORDERED: FUROSEMIDE 20 MG/ 2ML VIAL ONE ×2 (07:13→09:31)
--- NOTE | 2024-03-25 08:24 | RAD REPORT ---
[facility] 6:39 am CLINICAL HISTORY: After Central line COMPARISON: Chest Single View dated 02/14/2024; Abdomen 1 View (KUB) dated 12/05/2023; Chest Single Vi ew dated 11/27/2023; Chest Single View dated 06/29/2020 TECHNIQUE: Portable AP view of the chest. FINDINGS: Right IJ CVC with tip at the superior cavoatrial junction level. The lungs are clear. No pneumothorax or effusion. The cardiomediastinal contours are unremarkable. IMPRESSION: No acute cardiopulmonary process.
[2024-03-25 09:21] LABS: Atypical Lymphocytes 1 %; Blood Morphology Comment NOT SEEN (NOT SEEN); Differential Total Cells Count 100; Lymphocytes 26 % (15-42); Monocytes 10 % (0-10); Platelet Estimate ADEQ; Segmented Neutrophils 63 % (40-80)
[2024-03-25 11:13] VITALS: O2SAT 100
[2024-03-25 11:24] VITALS: TEMP 97.3
[2024-03-25 11:26] VITALS: BP 102/66
--- NOTE | 2024-03-27 17:06 | EKG ---
Test Date: 2024-03-25 Test Time: 04:58:09 Head Char Filter Tank Tender: MEASUREMENT RESULTS: Intervals: Rate: 103 AL: 142 QRSD: 78 QT: 380 QTc: 497 [place]: P: 71 AL: 142 QRS: 25 T: 44 INTERPRETIVE STATEMENTS: Sinus tachycardia Otherwise normal ECG Compared to ECG 02/14/2024 11:32:49 No significant changes Electronically Signed On 03-27-24 17:00:29 CDT by Harsha Palencia
== END 2024-03-25 10:53 | disposition short-term general hospital (02) ==
LOC: ER 04:34
PROC: 30233N1 Transfusion of Nonautologous Red Blood Cells into Peripheral Vein, Percutaneous Approach (ICD-10-PCS; principal; 2024-03-25)
DX: D64.9 Anemia, unspecified (principal); R57.8 Other shock; K27.4 Chronic or unspecified peptic ulcer, site unspecified, with hemorrhage
CPT/HCPCS: 93005; 85025; 36415; 86900; 86850; 85610; 86901; 86920 ×5; 83690; 80053; 86140; 71045; 51702; 99285; 36556; 36430; J0612; J1940 ×2; J2354; J2470; P9016 ×4; P9047; J7050; J7040 ×2; J7030; J0696

== ENCOUNTER 2025-04-20 09:21 | Emergency (ER) | payer BC, SELFPAY ==
[2025-04-20] MEDS ORDERED: ONDANSETRON 4 MG/2 ML VIAL ONE (09:34)
[2025-04-20] MEDS ORDERED: NA CHLORIDE 0.9% 1,000 ML ONE (09:34)
[2025-04-20] MEDS ORDERED: MORPHINE 4 MG/ML SYR ONE (09:34)
[2025-04-20 10:13] LABS: Absolute Lymphocytes (CBC) 1.8 K/uL (0.7-4.9); Hematocrit 44.3 % (36.0-45.0); Hemoglobin 15.2 g/dL (12.0-15.0); MCH 32.2 pg (27.0-35.0); MCHC 34.3 g/dL (32.0-36.0); MCV 93.8 fL (80-100); MPV 8.9 fL (7.6-11.3); Nucleated RBC Absolute Count 0.0 (0-0); Nucleated Red Blood Cells % 0.2 % (0-0); RBC Red Blood Cell Count 4.72 M/uL (3.86-4.86); White Blood Count 8.70 thou/uL (4.3-10.9)
[2025-04-20 10:18] LABS: ALT/SGPT 30.0 U/L (13-56); AST/SGOT 25.0 U/L (15-37); Albumin 3.4 g/dL (3.4-5.0); Albumin/Globulin Ratio 0.9 (1.1-1.8); Alkaline Phosphatase 124.0 U/L (45-117); Anion Gap 8.4 mEq/L (5.0-15.0); BUN Blood Urea Nitrogen 7.0 mg/dL (7-18); Globulin 4.0 g/dL (2.3-3.5); Glucose Level 148.0 mg/dL (74-106); Lipase 170.0 U/L (13-75); Potassium 3.4 mEq/L (3.5-5.1)
--- NOTE | 2025-04-20 11:22 | RAD REPORT ---
EXAMINATION: CT Abdomen Pelvis W Contrast CLINICAL INDICATION: Female, 65 years old. RLQ pain;Abd pain TECHNIQUE: CT abdomen and pelvis was performed, after the administration of IV contrast, as per [facility] protocol. Axial, sagittal and coronal reconstructions were obtained. One or more of the following dose reduction techniques were used: Automated exposure control, adjustment of the mA and k V according to patient size, and iterative reconstruction. Unless otherwise specified, incidental findings do not require dedicated imaging follow-up. COMPARISON: No prior exam. FINDINGS: LOWER CHEST: The visualized lung bases are clear. LIVER: Normal in size. Mildly nodular capsular contour again seen, could relate to chronic fibrosis o r early cirrhosis. No focal lesion. BILIARY SYSTEM: No suspicious abnormalities. SPLEEN: Normal size. No focal lesion. PANCREAS: No mass, ductal dilation, or ramone-pancreatic fluid. ADRENALS: Normal; no mass. KIDNEYS: Normal size and contour. No hydronephrosis. Small lower pole anterior cortical 1.2 cm cyst, stable URINARY BLADDER: Compressed with mild apparent wall prominence, could relate to underdistention or se quelae of acute or chronic cystitis.. GASTROINTESTINAL TRACT: No evidence of free air, significant intra-abdominal free fluid, bowel obstru ction or abscess. Fluid opacification of nondistended small bowel loops left upper quadrant, nonspecific. APPENDIX: Normal appendix. LYMPH NODES: No lymphadenopathy. MUSCULOSKELETAL: No acute or suspicious osseous abnormality. ADDITIONAL FINDINGS: Solid-appearing ovoid 4.0 x 2.6 cm lesion closely associated with the left uteri ne wall, could represent a subserosal fibroid. IMPRESSION: Nonspecific fluid opacification of nondistended small bowel loops in the left upper quadrant, could r elate to mild enteritis or diarrheal state. No other Acute or concerning abnormalities seen in the abdomen or pelvis. Other stable incidental findings as above.
[2025-04-20 11:25] LABS: Sqamous Epithelial <5 /HPF (None Seen); Urine Crystals Unidentified Few /HPF (None Seen); Urine Culture Reflex Order REFLEXED; Urine Microscopic Reflex YN ORDER UMIC
--- NOTE | 2025-04-20 11:36 | ER ---
Nurse's Notes [facility] Name: Charlie Fisher Age: 65 yrs Sex: Female : 1960 Arrival Date: 04/20/2025 Time: 09:21 Bed 6 Private MD: Diagnosis: UTI/ Urinary tract infection, site not specified;Other specified noninfective gastroenteritis and colitis Presentation: 04/20 09:36 Chief complaint: EMS states: Toned out for RLQ pain, radiates to Right flank x 2 days, jl7 N/V/D. Coronavirus screen: At this time, the client does not indicate any symptoms associated with coronavirus-19. Ebola Screen: No symptoms or risks identified at this time. Initial Sepsis Screen: Does the patient meet any 2 criteria? HR > 90 bpm. No. Patient's initial sepsis screen is negative. Does the patient have a suspected source of infection? No. Patient's initial sepsis screen is negative. Risk Assessment: Do you want to hurt yourself or someone else? Patient reports no desire to harm self or others. Onset of symptoms was April 18, 2025. Care prior to arrival: Medication(s) given: zofran 4 mg, IV initiated. 20 GA, in the left forearm, Glucose check: 152. 09:36 Method Of Arrival: EMS: [facility] jl7 09:36 Acuity: GALA 3 jl7 Triage Assessment: 09:21 General: Appears in no apparent distress. uncomfortable, Behavior is calm, cooperative, jl7 appropriate for age. Pain: Complains of pain in right lower quadrant Pain radiates to right flank Pain currently is 7 out of 10 on a pain scale. Quality of pain is described as burning, Pain began 2-3 days ago. Is continuous. Neuro: Cruz Agitation-Sedation Scale (RASS): +1 Restless Level of Consciousness is awake, alert, obeys commands, Oriented to person, place, time, situation. Cardiovascular: Patient's skin is warm and dry. Respiratory: Airway is patent Respiratory effort is even, unlabored, Respiratory pattern is regular, symmetrical. GI: Abdomen is round non-distended, Abd is soft and non tender Reports lower abdominal pain, diarrhea, nausea, vomiting. : No signs and/or symptoms were reported regarding the genitourinary system. Derm: Skin is pink, warm \T\ dry. Historical: - Allergies: 09:57 No Known Allergies; jl7 - Home Meds: :57 None [Active]; jl7 - PMHx: :57 arthritis to knee; Bleeding stomach ulcer; neuropathy; jl7 - PSHx: :57 endoscopic hemostasis; jl7 - Immunization history:: Adult Immunizations up to date. - Infectious Disease History:: Denies. - Social history:: Smoking status: unknown. Screenin:02 [facility] ED Fall Risk Assessment (Adult) History of falling in the last 3 months, jl7 including since admission No falls in past 3 months (0 pts) Confusion or Disorientation No (0 pts) Intoxicated or Sedated No (0 pts) Impaired Gait Yes (1 pt) Mobility Assist Device Used Yes (1 pt) Altered Elimination No (0 pt) Score/Fall Risk Level 0 - 2 = Low Risk Oriented to surroundings, Maintained a safe environment. Abuse screen: Denies threats or abuse. Denies injuries from another. Nutritional screening: No deficits noted. Tuberculosis screening: No symptoms or risk factors identified. Assessment: 09:30 General: See triage. jl7 10:30 Reassessment: Patient appears in no apparent distress at this time. Patient and/or [facility] family updated on plan of care and expected duration. Pain level reassessed. Patient is alert, oriented x 3, equal unlabored respirations, skin warm/dry/pink. pain rated 4/10 at this time. Patient states symptoms have improved. 11:30 Reassessment: Patient appears in no apparent distress at this time. No changes from [facility] previously documented assessment. Patient and/or family updated on plan of care and expected duration. Pain level reassessed. Patient is alert, oriented x 3, equal unlabored respirations, skin warm/dry/pink. Vital Signs: 09:36 BP 175 / 98; Pulse 102; Resp 15; Temp 98.6; Pulse Ox 100% ; Weight 77.11 kg; Height 5 jl7 ft. 7 in. ; Pain 7/10; 10:01 BP 148 / 87; Pulse 95; Resp 15; Pulse Ox 96% ; jl7 10:38 Pain 4/10; jl7 10:38 BP 148 / 87; Pulse 93; Resp 15; Pulse Ox 97% ; Pain 4/10; jl7 11:13 BP 167 / 86; Pulse 86; Resp 15; Pulse Ox 97% ; jl7 11:30 BP 134 / 95; Pulse 93; Resp 17; Pulse Ox 96% on R/A; Pain 0/10; ar8 09:36 Body Mass Index 26.63 (77.11 kg, 170.18 cm) jl7 09:36 Pain Scale: Adult jl7 10:38 Pain Scale: Adult jl7 10:38 Pain Scale: Adult jl7 11:30 Pain Scale: Adult ar8 ED Course: 09:21 Arm band placed on right wrist. jl7 09:23 Patient arrived in ED. eb 09:24 Kamron Solano FNP-C is PHCP. dr5 09:24 Regino Renee MD is Attending Physician. dr5 09:33 Misty Garcia RN is Primary Nurse. jl7 09:38 Triage completed. jl7 09:40 Initial lab(s) drawn, by me, sent to lab. Maintain EMS IV. Dressing intact. Good blood jl7 return noted. Site clean \T\ dry. Gauge \T\ site: 20 Left FA. Flushed with 10 mL NS. 10:02 Patient has correct armband on for positive identification. Bed in low position. Call jl7 light in reach. Side rails up X2. Provided Education on: use of call [place]. 10:33 CT Abd/Pelvis - IV Contrast Only In Process Unspecified. EDMS 11:55 No provider procedures requiring assistance completed. IV discontinued, intact, jl7 bleeding controlled, No redness/swelling at site. Pressure dressing applied. Administered Medications: 09:54 Drug: Ondansetron IVP 4 mg IVP once; over 2 minutes Route: IVP; Site: left forearm; jl7 10:38 Follow up: Response: No adverse reaction; Nausea is decreased jl7 09:54 Drug: morphine IVP or IV 4 mg IVP once over 4 mins Route: IVP; Infused Over: 4 mins; jl7 Site: left forearm; 10:38 Follow up: Pain 4/10 Adult; Response: No adverse reaction; Pain is decreased; RASS: jl7 Alert and Calm (0) 09:54 Drug: NS 0.9% IV 1000 ml IV at 1 bolus Per protocol; to be given as a bolus over 60 jl7 minutes Route: IV; Rate: 1 bolus; Site: left forearm; 11:00 Follow up: Response: No adverse reaction; IV Status: Completed infusion; IV Intake: jl7 1000ml Medication: 10:02 VIS not applicable for this client. jl7 Intake: 11:00 IV: 1000ml; Total: 1000ml. jl7 Outcome: 11:36 Discharge ordered by . dr5 11:55 Discharged to home via wheelchair, with friend, jl7 11:55 Condition: stable 11:55 Discharge instructions given to patient, Instructed on discharge instructions, follow up and referral plans. medication usage, Demonstrated understanding of instructions, follow-up care, medications, Prescriptions given X 3, 11:59 Patient left the ED. jl7 Signatures: Dispatcher [employer] EDMisty Godoy RN RN jl7 Corinna Newman Dustin, CHIEF ENGINEERING DIV[employer]-C CHIEF ENGINEERING DIV[employer]-Cdr5 Maverick Porras RN RN ar8 Corrections: (The following items were deleted from the chart) 09:57 09:36 Care prior to arrival: Medication(s) given: zofran 4 mg, IV initiated. 20 GA, in jl7 the right antecubital area, Glucose check: 152 [facility] 09:59 09:57 Home Meds: None; jl7 jl7
--- NOTE | 2025-04-20 11:36 | EDPHYS ---
Physician Documentation [facility] Name: Charlie Fisher Age: 65 yrs Sex: Female : 1960 Arrival Date: 04/20/2025 Time: 09:21 Bed 6 Private MD: ED Physician Regino Renee HPI: 04/20 10:27 This 65 yrs old Female presents to ER via EMS with complaints of Abdominal dr5 Pain. 10:27 The patient presents with abdominal pain right lower quadrant. Onset: The dr5 symptoms/episode began/occurred 3 day(s) ago. Patient is a 65-year-old female with history of bleeding ulcer, neuropathy, arthritis coming in for right lower quadrant pain that radiates to her back for the past 2 to 3 days. Patient reports consistent pain with nausea and vomiting. Patient denies dysuria, hematuria, fever, chest pain, or shortness of breath.. 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 - Infectious Disease History:: Denies. - Social history:: Smoking status: unknown. ROS: 10:27 Constitutional: as per hpi dr5 Exam: 10:27 Constitutional: This is a well developed, well nourished patient who is awake, alert, dr5 and in no acute distress. Head/Face: Normocephalic, atraumatic. Eyes: Pupils equal round and reactive to light, extra-ocular motions intact. Lids and lashes normal. Conjunctiva and sclera are non-icteric and not injected. Cornea within normal limits. Periorbital areas with no swelling, redness, or edema. Chest/axilla: Normal chest wall appearance and motion. Nontender with no deformity. No lesions are appreciated. Cardiovascular: Regular rate and rhythm with a normal S1 and S2. Normal PMI, no JVD. No pulse deficits. Respiratory: Lungs have equal breath sounds bilaterally, clear to auscultation. No rales, rhonchi or wheezes noted. No increased work of breathing, no retractions or nasal flaring. Back: No spinal tenderness. No costovertebral tenderness. Full range of motion. Skin: Warm, dry with normal turgor. Normal color with no rashes, no lesions, and no evidence of cellulitis. MS/ Extremity: Pulses equal, no cyanosis. Neurovascular intact. Full, normal range of motion. Neuro: Awake and alert, GCS 15, oriented to person, place, time, and situation. Cranial nerves II-XII grossly intact. Motor strength 5/5 in all extremities. Sensory grossly intact. Cerebellar exam normal. Normal gait. 10:27 Abdomen/GI: Inspection: abdomen appears normal, Bowel sounds: normal, Palpation: mild abdominal tenderness, in the right lower quadrant, Vital Signs: 09:36 BP 175 / 98; Pulse 102; Resp 15; Temp 98.6; Pulse Ox 100% ; Weight 77.11 kg; Height 5 jl7 ft. 7 in. ; Pain 7/10; 10:01 BP 148 / 87; Pulse 95; Resp 15; Pulse Ox 96% ; jl7 10:38 Pain 4/10; jl7 10:38 BP 148 / 87; Pulse 93; Resp 15; Pulse Ox 97% ; Pain 4/10; jl7 11:13 BP 167 / 86; Pulse 86; Resp 15; Pulse Ox 97% ; jl7 11:30 BP 134 / 95; Pulse 93; Resp 17; Pulse Ox 96% on R/A; Pain 0/10; ar8 09:36 Body Mass Index 26.63 (77.11 kg, 170.18 cm) jl7 09:36 Pain Scale: Adult jl7 10:38 Pain Scale: Adult jl7 10:38 Pain Scale: Adult jl7 11:30 Pain Scale: Adult ar8 MDM: 09:24 Medical Screening Exam initiated dr5 11:36 Differential diagnosis: appendicitis, bowel obstruction, non-specific abd pain, dr5 Pyelonephritis, urinary tract infection. Data reviewed: vital signs, nurses notes, lab test result(s), amylase and lipase, CBC, white blood cell count, hemoglobin, hematocrit, platelets, electrolytes, sodium, potassium, chloride, serum bicarbonate, BUN, creatinine, serum glucose, urinalysis, bacteruria, radiologic studies, CT scan. Consideration of Admission/Observation Escalation of care including admission/observation considered. Escalation was considered patient found of appendicitis. I considered the following discharge prescriptions or medication management in the emergency department I discussed and recommended Over The Counter medications, Medications were administered in the Emergency Department. See MAR. Care significantly affected by the following chronic conditions: Arthritis, bleeding stomach ulcer, neuropathy. Care significantly affected by the following Social Determinants of Health: Poor access to healthcare and/or lack of insurance, Poor access to transportation, Problems related to employment. Counseling: I had a detailed discussion with the patient and/or guardian regarding the historical points, exam findings, and any diagnostic results supporting the discharge/admit diagnosis, the presence of at least one elevated blood pressure reading (>120/80) during this emergency department visit, lab results, radiology results, the need for outpatient follow up, for definitive care, a family practitioner, to return to the emergency department if symptoms worsen or persist or if there are any questions or concerns that arise at home. Medication response: Response to treatment: the patient's symptoms have resolved after treatment, the patient's condition has returned to base line, the patient is now symptom free. Special discussion: Based on the patient's Hx, exam, and Dx evaluation, there is no indication for emergent surgery or inpatient Tx. It is understood by the patient/guardian that if the Sx's persist or worsen they need to return immediately for re-evaluation. Based on the history and exam findings, there is no indication for further emergent testing or inpatient evaluation. I discussed with the patient/guardian the need to see the primary care provider for further evaluation of the symptoms. ED course: Patient found to have colitis and diarrheal state as well as urinary tract infection. Will treat with antibiotics and give pain medication as well as antiemetics. Labs and CT scan results printed and given to patient to take with her to primary care doctor. All questions answered. Strict ER precautions given. Patient reports her pain has resolved and feeling much better.. 04/20 09:32 Order name: CBC with Diff; Complete Time: 10: dr5 04/20 09:32 Order name: CMP; Complete Time: 10: dr5 04/20 09:32 Order name: Lipase; Complete Time: : dr5 04/20 09:32 Order name: UA Rfx Alvin Cult if indicated; Complete Time: 11:31 dr5 04/20 11:32 Order name: Urine Culture EDMS 04/20 09:32 Order name: CT Abd/Pelvis - IV Contrast Only; Complete Time: 11: dr5 04/20 09:32 Order name: IV Saline Lock; Complete Time: 09:54 dr5 04/20 09:32 Order name: Labs collected and sent; Complete Time: :54 dr5 Administered Medications: 09:54 Drug: Ondansetron IVP 4 mg IVP once; over 2 minutes Route: IVP; Site: left forearm; jl7 10:38 Follow up: Response: No adverse reaction; Nausea is decreased jl7 09:54 Drug: morphine IVP or IV 4 mg IVP once over 4 mins Route: IVP; Infused Over: 4 mins; jl7 Site: left forearm; 10:38 Follow up: Pain 4/10 Adult; Response: No adverse reaction; Pain is decreased; RASS: jl7 Alert and Calm (0) 09:54 Drug: NS 0.9% IV 1000 ml IV at 1 bolus Per protocol; to be given as a bolus over 60 jl7 minutes Route: IV; Rate: 1 bolus; Site: left forearm; 11:00 Follow up: Response: No adverse reaction; IV Status: Completed infusion; IV Intake: jl7 1000ml Disposition Summary: 04/20/25 11:36 Discharge Ordered Notes: Location: Home dr5 Condition: Stable dr5 Diagnosis - UTI/ Urinary tract infection, site not specified dr5 - Other specified noninfective gastroenteritis and colitis dr5 Followup: dr5 - With: Emergency Department - When: As needed - Reason: Worsening of condition Followup: dr5 - With: Private Physician - When: 1 - 2 days - Reason: Recheck today's complaints, Continuance of care, Re-evaluation by your physician Discharge Instructions: - Discharge Summary Sheet dr5 - Urinary Tract Infection, Adult, [id number] dr5 - Colitis dr5 Forms: - Medication Reconciliation Form dr5 - Antibiotic Education dr5 - Prescription Opioid Use dr5 - Patient Portal Instructions dr5 - Leadership Thank You Letter dr5 Prescriptions: - Cephalexin 500 mg Oral Capsule - take 1 capsule ORAL route every 12 hours for 10 days; 20 capsule; Refills: 0, dr5 Product Selection Permitted - Zofran 4 mg Oral Tablet - take 1 tablet ORAL route every 12 hours As needed; 20 tablet; Refills: 0, dr5 Product Selection Permitted - Tramadol 50 mg Oral Tablet - take 1 tablet ORAL route every 8 hours as needed; 12 tablet; Refills: 0, dr5 Product Selection Permitted Signatures: Dispatcher [employer] Misty Valentino RN RN jl7 Kamron Solano FNP-C MOLD SETTER-Cdr5 Corrections: (The following items were deleted from the chart) 09:32 09:32 Abdomen Pelvis W [id number] ordered. EDMS EDMS 09:59 09:57 Home Meds: None; jl7 jl7
[2025-04-20 12:04] VITALS: TEMP 98.6
[2025-04-20 12:11] VITALS: BP 134/95; O2SAT 96
== END 2025-04-20 11:59 | disposition home or self-care (01) ==
LOC: ER 09:21
DX: N39.0 Urinary tract infection, site not specified (principal); K52.89 Other specified noninfective gastroenteritis and colitis
CPT/HCPCS: 36415; 74177; 80053; 81001; 83690; 85025; 87086; 87088; 96361; 96374; 96375; 99284; J2405; J7030; Q9967